=== PATIENT | male | born 1950 | race Two or more races ===

== ENCOUNTER 2025-01-25 14:47 | Inpatient (IN) | payer OTHER ==
[~2025-01-25] VITALS: Ht 172.7 cm; Wt 110.8 kg
[~2025-01-25 14:47] MED LIST: ATOR80TA PO; CARV6.2551 PO; CLOP75TA70 PO; LOSA-535 PO; TRAZ-227 PO
--- NOTE | 2025-01-25 15:08 | ED.PDOC ---
GI ASSESSMENT HPI Comments 74 year old male DENISE presents to the ED with chief complaint of abdominal pain and hematemesis. Patient reports that he had started to experience epigastric abdominal pain with associated dark red hematemesis since an hour ago. Patient relays that he is not sure what color his stools are as he is changed by [facility] staff at [facility] where he stays. Patient states he has history of stomach ulcers and believes they are causing the pain and hematemesis. Patient notes he is currently on Plavix. Patient denies any melena, hematochezia, dizziness, fever, chills, diarrhea, or chest pain. Chief Complaint: GI Bleed Time Seen by MD: 15:04 Reviewed Notes: Nurses Notes, Roller Staker Notes, Medications, Allergies Allergies: Coded Allergies: NO KNOWN ALLERGIES (Unverified , 01/25/25) Information Source: Patient, Emergency Med Personnel Mode of Arrival: EMS Timing: Hours Duration: Since onset Prehospital treatment: None Quality: Sharp Vomitus: Coffee Grounds Stool: Normal Severity: Moderate Recent: None Recent Hx of: Ulcer Disease Pain Location: Epigastric Modifying Factors: Nothing Associated sign and symptoms: Hematemesis, Abdominal Pain Past Medical History PAST MEDICAL HISTORY: CVA, MD Past Medical History (Other): Stomach ulcers Surgical History: Denies all surgeries Family History Family History: Reviewed,noncontributory to illness Social History Smoker: Non-Smoker Alcohol: Denies ETOH Use Drugs: Denies Drug Use Lives In: Assisted Care, Shelter Constitutional: denies: chills, diaphoresis, fatigue, fever, malaise, sweats, weakness, others EENTM: denies: blurred vision, double vision, ear bleeding, ear discharge, ear drainage, ear pain, ear ringing, eye pain, eye redness, hearing loss, mouth pain, mouth swelling, nasal discharge, nose bleeding, nose congestion, nose pain, photophobia, tearing, throat pain, throat swelling, voice changes, others Respiratory: denies: cough, hemoptysis, orthopnea, SOB at rest, shortness of breath, SOB with excertion, stridor, wheezing, others Cardiovascular: denies: chest pain, dizzy spells, diaphoresis, Dyspnea on exertion, edema, irregular heart beat, left arm pain, lightheadedness, palpitations, PND, syncope, others Gastrointestinal: reports: abdominal pain, hematemesis; denies: abdomen di stended, blood streaked bowels, constipated, diarrhea, dysphagia, difficulty swallowing, melena, nausea, poor appetite, poor fluid intake, rectal bleeding, rectal pain, vomiting, others Genitourinary: denies: burning, dysuria, flank pain, frequency, hematuria, incontinence, penile discharge, penile sore, pain, testicle pain, testicle swelling, urgency, others Neurological: denies: dizziness, fainting, headache, left sided numbness, left sided weakness, numbness, paresthesia, pre-existing deficit, right sided numbness, right sided weakness, seizure, speech problems, tingling, tremors, weakness, others Musculoskeletal: denies: back pain, gout, joint pain, joint swelling, muscle pain, muscle stiffness, neck pain, others Integumetry: denies: bruises, change in color, change in hair/nails, dryness, laceration, lesions, lumps, rash, wounds, others Allergic/Immunocompromised: denies: Difficulty Healing, Frequent Infections, Hives, Itching, others Hematologic/Lymphatic: denies: anemia, blood clots, easy bleeding, easy bruising, swollen glands, others Endocrine: denies: excessive hunger, excessive sweating, excessive thirst, excessive urination, flushing, intolerance to cold, intolerance to heat, unexplained weight gain, unexplained weight loss, others Psychiatric: denies: anxiety, bipolar disorder, depression, hopeless, panic disorder, schizophrenia, sleepless, suicidal, others All Other Systems: Reviewed and Negative Physical Exam General Appearance: Moderate Distress, Normal HEENT: Normal ENT Inspection, PERRL/EOMI Neck: Full Range of Motion, Non-Tender, Normal, Normal Inspection Respiratory: Chest Non-Tender, Lungs Clear, No Accessory Muscle Use, No Respiratory Distress, Normal Breath Sounds Cardiovascular: No Edema, No JVD, No Murmur, No Gallop, Normal Peripheral Pulses, Regular Rate/Rhythm Breast Exam: Deferred Gastrointestinal: No Organomegaly, Non Tender, No Pulsatile Mass, Normal Bowel Sounds, Soft Genitalia: Deferred Pelvic: Deferred Rectal: Deferred Extremities: Decreased range of motion (Right upper lower extremity), No calf tenderness, No pedal edema Musculoskeletal : Apperance: Normal Neurologic: Alert, Motor Weakness (Right upper lower extremity) Cerebellar Function: NOT DONE Reflexes: NOT DONE Skin: Dry, Normal Color, Warm Lymphatic: No Adenopathy Was a procedure done? Was a procedure done?: No GI differential Dx Differential Diagnosis: Constipation, Diverticular disease, Esophagitis, Gastritis/PUD, Gastroenteritis X-Ray, Labs, Meds, VS Vital Signs Date Time Temp Pulse Resp B/P (MAP) Pulse Ox O2 Delivery O2 Flow Rate FiO2 01/25/25 14:56 97.3 88 18 168/99 (122) 98 Lab Test 01/25/25 15:17 Range/Units White Blood Count Pending Red Blood Count Pending Hemoglobin Pending Hematocrit Pending Mean Corpuscular Volume Pending Mean Corpuscular Hemoglobin Pending Mean Corpuscular Hemoglobin Concent Pending Red Cell Distribution Width Pending Platelet Count Pending Mean Platelet Volume Pending Neutrophils (%) (Auto) Pending Lymphocytes (%) (Auto) Pending Monocytes (%) (Auto) Pending Basophils (%) (Auto) Pending Neutrophils # (Auto) Pending Lymphocytes # (Auto) Pending Monocytes # (Auto) Pending Sodium Level Pending Potassium Level Pending Chloride Level Pending Carbon Dioxide Level Pending Anion Gap Pending Blood Urea Nitrogen Pending Creatinine Pending Glomerular Filtration Rate Calc Pending BUN/Creatinine Ratio Pending Serum Glucose Pending Calcium Level Pending Troponin I High Sensitivity Pending Patient alert. Complaining of vomiting dark color material. Vitals stable. Saturation pristine on room air. He does take Plavix. History of stroke. He is mentating. Was placed on Protonix. GI consultation. Reviewed his previous visit. Explained to the patient. Continue monitoring. EKG reviewed does not show any acute changes. Time of 1ST Reevaluation: 16:04 Reevaluation 1ST: Unchanged Patient Education/Counseling: Diagnosis, Treatment Family Education/Counseling: No Family Present Additional Information Previous visit documents reviewed: None The following tests were ordered, and results were reviewed by me: Additional Information was gathered from interviewing the following independent historians: EMS I reviewed and agreed with the following test results read by other providers: I discussed treatment and results with medical personnel. Departure 1 Departure Time of Disposition: 15:29 Impression: Primary Impression: GI bleed Qualified Codes: K92.2 - Gastrointestinal hemorrhage, unspecified Disposition: 09 ADMITTED INPATIENT Admit to: Med Surg Condition: Guarded Critical Care Note Critical Care Time?: Yes (90 min-critical care time only) Critical care comment: GI bleed monitor Stability Stability form required: No Heart Score Heart Score: Heart Score Response (Comments) Value History Slightly Suspicious 0 EKG Normal 0 Age >65 2 Risk Factors >3 or Hx ASHD 2 Troponin Normal limit 0 Total 4 I personally scribed for CECILIA ELLINGTON MD ([email or web address]) on 01/25/25 at 15:08. Electronically submitted by Johnny Thompson ([email or web address]). CECILIA ELLINGTON MD Jan 25, 2025 15:08
[2025-01-25 15:26] LABS: Basophils # (auto) 0.1 10 ^3/uL (0-0.2); Basophils % (auto) 0.5 % (0.0-2.0); Eosinophils # (auto) 0.2 10 ^3/uL (0-0.8); Eosinophils % (auto) 1.5 % (0.0-7.0); Hematocrit 37.8 % (41.0-53.0); Hemoglobin 12.8 g/dL (13.5-17.5); Lymphocytes # (auto) 1.2 10 ^3/uL (0.4-5.4); Lymphocytes % (auto) 8.8 % (10.0-50.0); Mean Corpuscular Hemoglobin 28.8 pg (28.0-32.0); Mean Corpuscular Hgb Conc. 33.8 g/dL (32.0-36.0); Mean Corpuscular Volume 85.3 fL (80.0-100.0); Monocytes % (auto) 6.8 % (0.0-12.0); Neutrophils # (auto) 11.7 10 ^3/uL (1.6-8.6); Neutrophils % (auto) 82.4 % (37.0-80.0); Nucleated Red Blood Cells % 0.1 %; Platelet Count (auto) 270 10^3/uL (140-450); Red Blood Cells 4.43 10^6/uL (4.5-5.90); Red Cell Distribution Width 12.9 % (11.8-14.3); White Blood Cell 14.2 10^3/uL (4.4-10.8)
[2025-01-25 15:40] LABS: Chloride 104 mmol/L (98-107); Potassium 4.2 mmol/L (3.5-5.1); Sodium 138 mmol/L (136-145)
[2025-01-25 15:41] LABS: Anion Gap 8 (5-15); Calcium 8.8 mg/dL (8.7-10.4); Carbon Dioxide 26 mmol/L (20-31)
[2025-01-25 15:46] LABS: BUN/Creatinine Ratio 24.8 (10.0-20.0)
[2025-01-25 15:47] LABS: Blood Urea Nitrogen 25 mg/dL (9-23); Glucose 149 mg/dL (74-106)
[2025-01-25] MEDS: PANTOPRAZOLE 40 MG/10 ML VIAL INJ IV ONE (15:57)
[2025-01-25] MEDS: ONDANSETRON HCL 4 MG/2 ML VIAL IV ONE ×2 (15:57→21:18)
[2025-01-25 16:01] VITALS: PULSE 89; RESP 20; O2SAT 95
--- NOTE | 2025-01-25 17:12 | DVH ---
CHEST RADIOGRAPH Indication: sob Technique: Single frontal view of the chest was obtained Comparison: None FINDINGS: Lines and Tubes: None Lungs: No focal consolidation. Moderate elevation of the right hemidiaphragm. Right paratracheal full ness. Pleura: No effusion. No pneumothorax. Cardiomediastinal contours: Unremarkable Bones: No acute osseous abnormality. IMPRESSION: No acute cardiopulmonary disease. Moderate elevation of the right hemidiaphragm. Right paratracheal fullness which may be from tortuous vasculature with mediastinal lymphadenopathy/m ass not excluded. CT May be considered for further evaluation.
[2025-01-25 19:28] VITALS: PULSE 92; RESP 14; O2SAT 96
[2025-01-25] MEDS: SODIUM CHLORIDE 0.9% 500 ML IV ONE (20:55)
[2025-01-25] MEDS: PANTOPRAZOLE 40mg/50ML NS AE 50 ML IV ONE (21:03)
[2025-01-25] MEDS ORDERED: MORPHINE SULFATE INJ 2 MG/ml SYRG IV PRN (21:15)
[2025-01-25] MEDS ORDERED: ONDANSETRON HCL 4 MG/2 ML VIAL IV PRN (21:15)
[2025-01-25] MEDS ORDERED: NITROGLYCERIN 0.4 MG SL TAB SL PRN (21:15)
[2025-01-25] MEDS: ONDANSETRON HCL 4 MG/2 ML VIAL ONE (21:18)
[2025-01-25] MEDS: OCTREOTIDE ACETATE 500 MCG in SODIUM CHL 0.9% 99 ML IV SCH (21:19)
[2025-01-25] MEDS: PANTOPRAZOLE 40mg/50ML NS AE 50 ML IV SCH (21:27)
--- NOTE | 2025-01-25 21:35 | DVHHP2 ---
History of Present Illness Reason for Visit: GI bleed History of Present Illness 74-year-old male presents for evaluation of GI bleed. Patient is a resident at [facility] in [place]. He reports having two episodes of bloody emesis. He describes the output as dark blood with clots. Denies melena. Reports having dizziness in mild shortness for breath. Denies chest pain or palpitations. The patient is not on any blood thinners. No other acute complaints reported. Past Medical History CVA, mi, brain tumor Past Surgical History Denies Family History Noncontributory Smoke: No ALCOHOL: none Drugs: None Lives: [facility] Review of Systems Review of Systems Review of systems are currently negative addressed HPI. Allergies: Coded Allergies: NO KNOWN ALLERGIES (Unverified , 01/25/25) Medications Current Medications Medications Dose Ordered Sig/Loco Route Start Time Stop Time Status Last Admin Dose Admin Octreotide Acetate 500 mcg/ Sodium Chloride 100 ml @ 10 mls/hr Q10H IV 01/25/25 20:15 01/25/25 21:19 10 MLS/HR Pantoprazole Sodium 50 ml @ 10 mls/hr Q5H IV 01/25/25 21:00 01/25/25 21:27 10 MLS/HR Sodium Chloride 1,000 ml @ 75 mls/hr [id number] IV 01/25/25 21:15 UNV Ondansetron HCl 4 mg Q4HP PRN IV 01/25/25 21:15 UNV Nitroglycerin 0.4 mg Q5MINP PRN SL 01/25/25 21:15 UNV Morphine Sulfate 2 mg Q30M PRN IV 01/25/25 21:15 UNV Exam Vital Signs Vital Signs Date Time Temp Pulse Resp B/P (MAP) Pulse Ox O2 Delivery O2 Flow Rate FiO2 01/25/25 19:41 89 01/25/25 19:28 14 96 Room Air* 0 21 01/25/25 19:27 97.9 117/98 (104) 97.9 Exam Gen: 74-year-old male in mild distress Skin: Warm, dry, normal color and texture, no rash. HEENT: Normocephalic atraumatic, mucous membranes moist and pink. Neck: Cervical and supraclavicular nodes normal without enlargement, trachea is midline, thyroid gland is normal without masses. Pulmonary: Clear to auscultation and percussion bilaterally. Cardiac: Regular rate and rhythm. No murmur Abdomen: Soft, nontender, nondistended, bowel sounds present all 4 quadrants, no guarding, no rigidity, no organomegaly. Extremities: No cyanosis, clubbing, no edema Neuro: Cranial nerves II through XII grossly intact, normal affect and speech, no focal motor deficits. Labs/Xrays ORDERING PHYSICIAN: CECILIA ELLINGTON MD PROCEDURE(s): CXRP - CHEST PORTABLE REASON: sob ORDER NUMBER(s): [id number], ACCESSION NUMBER(s): [id number] CHEST RADIOGRAPH Indication: sob Technique: Single frontal view of the chest was obtained Comparison: None FINDINGS: Lines and Tubes: None Lungs: No focal consolidation. Moderate elevation of the right hemidiaphragm. Right paratracheal fullness. Pleura: No effusion. No pneumothorax. Cardiomediastinal contours: Unremarkable Bones: No acute osseous abnormality. IMPRESSION: No acute cardiopulmonary disease. Moderate elevation of the right hemidiaphragm. Right paratracheal fullness which may be from tortuous vasculature with mediastinal lymphadenopathy/mass not excluded. CT May be considered for further evaluation. Labs Test 01/25/25 20:52 01/25/25 20:34 01/25/25 19:30 01/25/25 15:17 Range/Units Lactic Acid Level 2.0 0.4-2.0 mmol/L Troponin I High Sensitivity 69 *H </=54 ng/L Eosinophils (%) (Auto) 1.5 0.0-7.0 % Eosinophils # (Auto) 0.2 0-0.8 10 ^3/uL Basophils # (Auto) 0.1 0-0.2 10 ^3/uL Nucleated Red Blood Cells 0.1 % Sodium Level 138 136-145 mmol/L Potassium Level 4.2 3.5-5.1 mmol/L Chloride Level 104 98-107 mmol/L Carbon Dioxide Level 26 20-31 mmol/L Anion Gap 8 5-15 Blood Urea Nitrogen 25 H 9-23 mg/dL Creatinine 1.01 0.700-1.30 mg/dL Glomerular Filtration Rate Calc 79 >90 mL/min BUN/Creatinine Ratio 24.8 H 10.0-20.0 Serum Glucose 149 H 74-106 mg/dL Calcium Level 8.8 8.7-10.4 mg/dL Assessment/Plan Assessment/Plan Assessment GI bleed Blood loss anemia Plan Admit the patient to telemetry to the hospitalist GI consultation NPO Protonix drip/octreotide drip Maintenance IV fluids Continue treatment per orders. Plan discussed with: Patient My Orders Orders - LUZMA VILLARREAL Procedure Category Date Status Time Pantoprazole PHA 01/25/25 In Process 40mg/50ml Ns Ae 21:00 Stool Occult Blood LAB 01/25/25 Logged 21:15 Admit ADMIT 01/25/25 Transmitted 21:15 Sodium Chloride 0.9% PHA 01/25/25 Logged 21:15 Ondansetron Hcl PHA 01/25/25 Logged (Zofran) 21:15 Complete Blood Count LAB 01/26/25 Verified 04:00 Comprehensive LAB 01/26/25 Verified Metabolic Panel 04:00 Npo (Nothing By DIET 01/26/25 Transmitted Mouth) Diet Breakfast Condition: Fair KIRSTEN 01/25/25 In Process 21:15 Bedrest With Bathroom KIRSTEN 01/25/25 In Process Privileg 21:15 Nitroglycerin PHA 01/25/25 Logged Sublingual (Ntrostat 21:15 Morphine Sulfate PHA 01/25/25 Logged Injection 21:15 Stat Ekg For Chest KIRSTEN 01/25/25 In Process Pain 21:15 Notify Md Of Changes KIRSTEN 01/25/25 In Process From Base 21:15 Metal Fabricator Welder For KIRSTEN 01/25/25 In Process 24 Hours 21:15 Emergency Dysrhythmia KIRSTEN 01/25/25 In Process Protocol 21:15 Rhythm Strips Once KIRSTEN 01/25/25 In Process Every Shift 21:15 Oxygen By Nasal RT 01/25/25 Transmitted Cannula 21:15 Date of Service: Jan 25, 2025 Billing Provider: LUZMA VILLARREAL Common Visit Codes: 63365-[id number] INP/OBS CARE (HIGH) LUZMA VILLARREAL Jan 25, 2025 21:35
[2025-01-25 21:52] LABS: Basophils # (auto) 0.1 10 ^3/uL (0-0.2); Basophils % (auto) 0.5 % (0.0-2.0); Eosinophils # (auto) 0.1 10 ^3/uL (0-0.8); Eosinophils % (auto) 0.8 % (0.0-7.0); Hematocrit 30.8 % (41.0-53.0); Hemoglobin 10.4 g/dL (13.5-17.5); Lymphocytes # (auto) 1.6 10 ^3/uL (0.4-5.4); Lymphocytes % (auto) 10.7 % (10.0-50.0); Mean Corpuscular Hemoglobin 29.1 pg (28.0-32.0); Mean Corpuscular Hgb Conc. 33.9 g/dL (32.0-36.0); Mean Corpuscular Volume 85.8 fL (80.0-100.0); Monocytes % (auto) 7.2 % (0.0-12.0); Neutrophils # (auto) 11.7 10 ^3/uL (1.6-8.6); Neutrophils % (auto) 80.8 % (37.0-80.0); Nucleated Red Blood Cells % 0.2 %; Platelet Count (auto) 320 10^3/uL (140-450); Red Blood Cells 3.59 10^6/uL (4.5-5.90); Red Cell Distribution Width 12.9 % (11.8-14.3); White Blood Cell 14.4 10^3/uL (4.4-10.8)
[2025-01-25 22:35] LABS: INR 1.22 (0.9-1.15); Partial Thromboplastin Time 29.4 SEC (24.5-34.5); Prothrombin Time 12.7 sec (9.3-11.8)
[2025-01-25] MEDS: SODIUM CHLORIDE 0.9% 1,000 ML IV SCH (22:46)
--- NOTE | 2025-01-25 22:48 | DVH ---
CHEST RADIOGRAPH Indication: NG TUBE Technique: Single frontal view of the chest was obtained Comparison: XY CHEST PORTABLE on DOS: 01/25/25 FINDINGS: Lines and Tubes: Enteric tube below the left diaphragm in the stomach Lungs: No focal consolidation. Pleura: No effusion. No pneumothorax. Cardiomediastinal contours: Unremarkable Bones: No acute osseous abnormality. IMPRESSION: 1. Enteric tube below the left diaphragm in the stomach
[2025-01-25 23:20] VITALS: BP 99/66; PULSE 92; RESP 22; TEMP 98.2
[2025-01-25 23:38] VITALS: BP 112/70; PULSE 93; RESP 20; TEMP 98
[2025-01-26] VITALS (9 sets, daily range): BP systolic 119–147; BP diastolic 62–93; PULSE 80–93; RESP 16–19; TEMP 98–98.6; O2SAT 97–100
--- NOTE | 2025-01-26 03:56 | ECG ---
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
[2025-01-26 06:08] LABS: Basophils # (auto) 0 10 ^3/uL (0-0.2); Basophils % (auto) 0.3 % (0.0-2.0); Eosinophils # (auto) 0.1 10 ^3/uL (0-0.8); Eosinophils % (auto) 0.5 % (0.0-7.0); Hematocrit 30.9 % (41.0-53.0); Lymphocytes # (auto) 1.3 10 ^3/uL (0.4-5.4); Lymphocytes % (auto) 9.8 % (10.0-50.0); Mean Corpuscular Hemoglobin 30.1 pg (28.0-32.0); Mean Corpuscular Hgb Conc. 35.7 g/dL (32.0-36.0); Mean Corpuscular Volume 84.5 fL (80.0-100.0); Monocytes # (auto) 1.1 10 ^3/uL (0-1.3); Monocytes % (auto) 8.4 % (0.0-12.0); Neutrophils # (auto) 10.7 10 ^3/uL (1.6-8.6); Nucleated Red Blood Cells % 0.1 %; Platelet Count (auto) 247 10^3/uL (140-450); Red Blood Cells 3.66 10^6/uL (4.5-5.90); Red Cell Distribution Width 12.9 % (11.8-14.3); White Blood Cell 13.2 10^3/uL (4.4-10.8)
[2025-01-26 06:23] LABS: Alanine Aminotransferase 13 U/L (7-40); Alkaline Phosphatase 59 U/L (46-116); Carbon Dioxide 21 mmol/L (20-31); Chloride 106 mmol/L (98-107)
[2025-01-26 06:24] LABS: Anion Gap 11 (5-15); Aspartate Aminotransferase 16 U/L (13-40); BUN/Creatinine Ratio 39.1 (10.0-20.0); Potassium 4.8 mmol/L (3.5-5.1); Sodium 138 mmol/L (136-145)
[2025-01-26 06:25] LABS: Bilirubin, Total 0.7 mg/dL (0.2-1.0)
[2025-01-26 06:29] LABS: Albumin 3.2 g/dL (3.2-4.8); Blood Urea Nitrogen 34 mg/dL (9-23); Calcium 8.5 mg/dL (8.7-10.4); Glucose 133 mg/dL (74-106); Total Protein 5.1 g/dL (5.7-8.2)
--- NOTE | 2025-01-26 10:26 | DVHPN2 ---
Progress Note Date Seen: Jan 26, 2025 Medical Necessity Reason Pt with a Central, PICC or Fol: No Subjective Patient reports: No new complaints Review of Systems: HEENT:Normal, CVS:Normal, RESPIRATORY:Normal, GI:Normal, :Normal, MSK:Normal, NEURO:Normal Objective vital signs Vital Sign Date Time Temp Pulse Resp B/P (MAP) Pulse Ox O2 Delivery O2 Flow Rate FiO2 01/26/25 05:00 98.6 86 18 119/62 (81) 98 98.6 01/25/25 19:28 Room Air* 0 21 Total Intake and Output 01/25/25 01/25/25 01/26/25 15:00 23:00 07:00 Intake Total 525 ml 1260 ml Output Total 300 ml Balance 525 ml 960 ml medications Current Medications Medications Dose Ordered Sig/Loco Route Start Time Stop Time Status Last Admin Dose Admin Octreotide Acetate 500 mcg/ Sodium Chloride 100 ml @ 10 mls/hr Q10H IV 01/25/25 20:15 01/25/25 21:19 10 MLS/HR Pantoprazole Sodium 50 ml @ 10 mls/hr Q5H IV 01/25/25 21:00 01/26/25 07:05 10 MLS/HR Sodium Chloride 1,000 ml @ 75 mls/hr [id number] IV 01/25/25 21:15 01/25/25 22:46 75 MLS/HR Ondansetron HCl 4 mg Q4HP PRN IV 01/25/25 21:15 Nitroglycerin 0.4 mg Q5MINP PRN SL 01/25/25 21:15 Morphine Sulfate 2 mg Q30M PRN IV 01/25/25 21:15 Examination: GENERAL:Normal, HEENT:Normal, NECK:Normal, LUNGS:Normal, CVS:Normal, ABDOMEN:Normal, ABDOMEN:Abnormal (ng tube), MSK:Normal, SKIN:Normal, NEURO:Normal, NEURO:Abnormal (right hemiplegia), :Normal laboratory and microbiology Laboratory Tests 01/26/25 04:57 Test 01/26/25 04:57 Range/Units Serum Glucose 133 H 74-106 mg/dL Problem List/Assessment/Plan Problem List/Assessment/Plan #1 gi bleed: ct abd, gi eval, iv protonic #2 h/o cva with right hemiplegia #3 cad #4 obesity #5 htn #6 ?sirs due to gi bleed #7 nstemi ?type 2 advance care planning- full code-time spent 19mins Plan discussed with: Patient, Daughter Date of Service: Jan 26, 2025 Billing Provider: LUZMA EAST MD Common Visit Codes: [id number] INP/OBS CARE(HIGH) Secondary Visit Codes: 35672-MYIJLIAN CARE PLAN 30 MINUTES CC Plasma Assessment Blood Product Administration S: [id number] LUZMA EAST MD Jan 26, 2025 10:26
--- NOTE | 2025-01-26 11:43 | DVHINCON2 ---
GI Consult Consult Note GI consult note Date of Consultation: 01/26/2025 Chief Complaint: GI bleed Referring Physician: Dr. Chadwick H&P: 74-year-old male presented to ER for GI bleed, from [facility]. Patient's daughter at bedside also providing history. Patient has DNR on chart Patient started with bloody emesis one day ago, with two episodes, which was dark blood with clots. Patient has about 300 cc via NG tube. No melena or red blood in stool, Last BM two days ago Patient complains of abdominal pain for the last seven days. History of GERD. No EGD in past History of CVA, May 2024. Treated with Plavix. Last dose yesterday Patient admits to take Tylenol and NSAIDs as needed for pain Past Medical History: CVA, mi, brain tumor Past Surgical History: Denies Social History: NO smoking, drinking ETOH and use of illegal drugs. Family History: Noncontributory Review of Systems: Constitutional: no fever, chill, weight loss HEENT: no eye pain, no hearing loss, no oral lesion, no scleral icterus Heart: no chest pain, no chest pressure Lung: no cough, no dyspnea with exertion Abdomen: see HPI Physical exam: General: NAD, AAOX3 Chest: lung garcia clear to auscultation Heart: RRR, no murmur Abdomen: non-distended, no tenderness to palpation, +BS Labs: Labs Test 01/26/25 04:57 01/25/25 20:52 01/25/25 19:30 Range/Units White Blood Count 13.2 H 4.4-10.8 10^3/uL Red Blood Count 3.66 L 4.5-5.90 10^6/uL Hemoglobin 11.0 L 13.5-17.5 g/dL Hematocrit 30.9 L 41.0-53.0 % Mean Corpuscular Volume 84.5 80.0-100.0 fL Mean Corpuscular Hemoglobin 30.1 28.0-32.0 pg Mean Corpuscular Hemoglobin Concent 35.7 32.0-36.0 g/dL Red Cell Distribution Width 12.9 11.8-14.3 % Platelet Count 247 140-450 10^3/uL Mean Platelet Volume 7.9 6.9-10.8 fL Neutrophils (%) (Auto) 81.0 H 37.0-80.0 % Lymphocytes (%) (Auto) 9.8 L 10.0-50.0 % Monocytes (%) (Auto) 8.4 0.0-12.0 % Eosinophils (%) (Auto) 0.5 0.0-7.0 % Basophils (%) (Auto) 0.3 0.0-2.0 % Neutrophils # (Auto) 10.7 H 1.6-8.6 10 ^3/uL Lymphocytes # (Auto) 1.3 0.4-5.4 10 ^3/uL Monocytes # (Auto) 1.1 0-1.3 10 ^3/uL Eosinophils # (Auto) 0.1 0-0.8 10 ^3/uL Basophils # (Auto) 0 0-0.2 10 ^3/uL Nucleated Red Blood Cells 0.1 % Sodium Level 138 136-145 mmol/L Potassium Level 4.8 3.5-5.1 mmol/L Chloride Level 106 98-107 mmol/L Carbon Dioxide Level 21 20-31 mmol/L Anion Gap 11 5-15 Blood Urea Nitrogen 34 H 9-23 mg/dL Creatinine 0.87 0.700-1.30 mg/dL Glomerular Filtration Rate Calc 91 >90 mL/min BUN/Creatinine Ratio 39.1 H 10.0-20.0 Serum Glucose 133 H 74-106 mg/dL Calcium Level 8.5 L 8.7-10.4 mg/dL Total Bilirubin 0.7 0.2-1.0 mg/dL Aspartate Amino Transferase (AST) 16 13-40 U/L Alanine Aminotransferase (ALT) 13 7-40 U/L Alkaline Phosphatase 59 46-116 U/L Total Protein 5.1 L 5.7-8.2 g/dL Albumin 3.2 3.2-4.8 g/dL Prothrombin Time 12.7 H 9.3-11.8 sec Prothrombin Time INR 1.22 H 0.9-1.15 Activated Partial Thromboplast Time 29.4 24.5-34.5 SEC Lactic Acid Level 2.0 0.4-2.0 mmol/L Troponin I High Sensitivity 69 *H </=54 ng/L Imaging: CT abdomen and pelvis Results pending Assessment: GI bleed History CVA with right hemiplegia on Plavix History of GERD Elevated troponins Plan: Discussed with Dr. Gutierrez Monitor labs, transfuse if hemoglobin less than seven Continue Protonix Continue octreotide, which can be stopped if H and H is stable and no active bleeding Echocardiogram pending Discussed possible EGD with patient and daughter, both being agreeable to the pr ocedure Possible plan for EGD on Friday, pending echocardiogram Hold Plavix and blood thinners Discussed plan with patient, daughter at bedside. RN and Dr. Flanagan Thank you for allowing GI team to participate in the care of this patient Date of Service: Jan 26, 2025 Billing Provider: LEEANN HERNANDEZ Common Visit Codes: CONSULT ONLY Consultation Codes: [id number] CONSULT <60MIN LEEANN HERNANDEZ Jan 26, 2025 11:43
--- NOTE | 2025-01-26 12:24 | DVH ---
Exam: CT CT AB PEL WO CON-NO ORAL OR IV History: gi bleed Comparison Study: None Technique: Multidetector spiral CT of the abdomen was performed from lung bases to pubic symphysis. I maging was performed without IV contrast. Axial, coronal and sagittal multiplanar reformats were obta ined from the axial data set by the technologist. Radiation Dose : 1. Abdomen/Pelvis: CTDIvol 23.9 mGy, DLP 1533.5 mGy*cm. Findings: Evaluation of solid organs is limited due to lack of intravenous contrast use. Lung Bases: Right basilar subsegmental atelectasis. Cardiomegaly. Calcifications in the left ventricl e are suspicious for left ventricular aneurysm. Liver: The liver is normal in size. No focal lesions. Gallbladder and Biliary Tree: Unremarkable Spleen: Unremarkable Pancreas: The pancreas is grossly normal in appearance. Adrenal Glands: Unremarkable Kidneys: Kidneys are grossly normal without calculi or hydronephrosis. Right lower pole renal cysts a re present. Bladder: Grossly unremarkable for degree of distention. Bowel: Small to moderate hiatal hernia. Diverticulosis. Normal appendix is visualized in the right lo wer quadrant without findings of appendicitis. Ascites: Absent Lymphadenopathy: No mesenteric, retroperitoneal or periportal lymphadenopathy. Abdominal Wall and Mesentery: Small bilateral fat containing inguinal hernias. Vasculature: The visualized abdominal aorta is normal in size and caliber. Evaluation of abdominal a nd pelvic vessels is limited due to lack of intravenous contrast. Pelvic Organs: Unremarkable Musculoskeletal: No aggressive focal bony lesions, acute fractures or dislocation. IMPRESSION: Colonic diverticulosis. Radiation optimization: All CT scans at this facility use at least one of these dose optimization walter hniques: automated exposure control mA and/or kV adjustment per patient size (includes targeted exam s where dose is matched to clinical indication) or iterative reconstruction.
[2025-01-27] VITALS (8 sets, daily range): BP systolic 114–162; BP diastolic 59–82; PULSE 72–92; RESP 16–18; TEMP 97.3–98.2; O2SAT 91–98
[2025-01-27 07:00] LABS: Chloride 106 mmol/L (98-107); Potassium 3.8 mmol/L (3.5-5.1); Sodium 140 mmol/L (136-145)
[2025-01-27 07:01] LABS: Anion Gap 8 (5-15); Carbon Dioxide 26 mmol/L (20-31)
[2025-01-27 07:03] LABS: Calcium 8.5 mg/dL (8.7-10.4)
[2025-01-27 07:06] LABS: BUN/Creatinine Ratio 27.4 (10.0-20.0); Glucose 142 mg/dL (74-106)
[2025-01-27 07:09] LABS: Blood Urea Nitrogen 26 mg/dL (9-23)
[2025-01-27 07:16] LABS: Basophils # (auto) 0.1 10 ^3/uL (0-0.2); Basophils % (auto) 0.5 % (0.0-2.0); Eosinophils # (auto) 0.2 10 ^3/uL (0-0.8); Hematocrit 27.9 % (41.0-53.0); Hemoglobin 9.7 g/dL (13.5-17.5); Lymphocytes # (auto) 1.1 10 ^3/uL (0.4-5.4); Lymphocytes % (auto) 5.8 % (10.0-50.0); Mean Corpuscular Hemoglobin 29.6 pg (28.0-32.0); Mean Corpuscular Hgb Conc. 34.8 g/dL (32.0-36.0); Mean Corpuscular Volume 85.1 fL (80.0-100.0); Monocytes # (auto) 1.2 10 ^3/uL (0-1.3); Monocytes % (auto) 6.7 % (0.0-12.0); Neutrophils # (auto) 15.9 10 ^3/uL (1.6-8.6); Platelet Count (auto) 262 10^3/uL (140-450); Red Blood Cells 3.28 10^6/uL (4.5-5.90); White Blood Cell 18.5 10^3/uL (4.4-10.8)
[2025-01-27] MEDS ORDERED: CLINIMIX PER PHARMACY 0 ML IV SCH (10:00)
--- NOTE | 2025-01-27 10:02 | DVHSR ---
APPROVED REPORT EXAM: LIMITED Two-dimensional and M-mode echocardiogram with Doppler and color Doppler. Blood Pressure: 119/62 mmHg INDICATION CAD RISK FACTORS Height: 5' 8", Weight: 216 DIMENSIONS LVDd5.4 (3.8-5.7cm)LA (2D)3.4 (1.9-4.0cm)Aortic Root3.8 (2.0-3.7cm) LVDs4.0 (2.5-4.0cm)LA (MM) (1.9-4.0cm)Aortic Cusp Exc1.7 (1.5-2.0cm) EF (%) 50.0 (55-70%)Rt. Atrium3.4 (1.9-4.0cm)Asc. Aorta4.0 cm IVSd1.3 (0.7-1.1cm)RV (D) (1.8-2.4cm) PWd1.3 (0.7-1.1cm) Mitral Valve MitralMitral Stenosis E wave0.70m/sMV Mean GR.mmHg A wave1.20m/sMV Peak GR.mmHg E/A ratio0.62D MVAcm2 Aortic Valve Aortic ValveAortic Stenosis V11.40m/Radha Mean GR.5mmHg V21.50m/Radha Peak GR.9mmHg LVOT Diameter2.4 (1.8-2.4cm)Doppler AVA4.22cm2 AI P 1/2 Pgms574.94ms Tricuspid Valve TR Velocity2.20m/s [id number] Other Information Quality : Technically LimitedRhythm : Technically limited study due to body habitus, patient sitting up due to nausea. Conclusion Technically difficult study. Difficult acoustic windows. Sinus rhythm. Left ventricular enlargement. Left atrial enlargement. Concentric LVH. Mild aortic sclerosis. The mitral tricuspid and pulmonic valves are structurally normal. Left ventricular function is diminished. EF is approximately 40%. There is anterior apical hypokine sis to akinesis. Mild thinning noted. Normal RV function. Mild aortic insufficiency. Mild tricuspid regurgitation. No pericardial effusion masses or vegetations.
--- NOTE | 2025-01-27 10:08 | DVHPN2 ---
Progress Note Date Seen: Jan 27, 2025 Medical Necessity Reason Pt with a Central, PICC or Fol: No Subjective Patient reports: No new complaints Review of Systems: HEENT:Normal, CVS:Normal, RESPIRATORY:Normal, GI:Normal, :Normal, MSK:Normal, NEURO:Normal Objective vital signs Vital Sign Date Time Temp Pulse Resp B/P (MAP) Pulse Ox O2 Delivery O2 Flow Rate FiO2 01/27/25 09:48 97.7 89 16 129/65 (86) 96 97.7 01/27/25 08:00 Nasal Cannula* 2 28 Total Intake and Output 01/26/25 01/26/25 01/27/25 15:00 23:00 07:00 Intake Total 250 ml Output Total 405 ml Balance -155 ml medications Current Medications Medications Dose Ordered Sig/Loco Route Start Time Stop Time Status Last Admin Dose Admin Pantoprazole Sodium 50 ml @ 10 mls/hr Q5H IV 01/25/25 21:00 01/27/25 08:34 10 MLS/HR Sodium Chloride 1,000 ml @ 75 mls/hr [id number] IV 01/25/25 21:15 01/27/25 01:46 75 MLS/HR Ondansetron HCl 4 mg Q4HP PRN IV 01/25/25 21:15 Nitroglycerin 0.4 mg Q5MINP PRN SL 01/25/25 21:15 Morphine Sulfate 2 mg Q30M PRN IV 01/25/25 21:15 Examination: GENERAL:Normal, HEENT:Normal, NECK:Normal, LUNGS:Normal, CVS:Normal, ABDOMEN:Normal, MSK:Normal, SKIN:Normal, NEURO:Normal, :Normal laboratory and microbiology Laboratory Tests 01/27/25 05:07 Test 01/27/25 05:07 Range/Units Serum Glucose 142 H 74-106 mg/dL Problem List/Assessment/Plan Problem List/Assessment/Plan #1 gi bleed: ct abd, gi eval, iv protonix, ng tube to lis #2 h/o cva with right hemiplegia #3 cad #4 obesity #5 htn #6 ?sirs due to gi bleed #7 nstemi ?type 2 #8 ?pneumonia/ sepsis: iv antibiotics, xray chest advance care planning- full code-time spent 19mins Plan discussed with: Patient, Daughter My Orders My Orders Orders - LUZMA EAST MD Procedure Category Date Status Time Ct Ab Pel Wo Con-No CT 01/26/25 Resulted Oral Or Iv 10:20 Echo 2d Mode Cardiac US 01/26/25 Resulted DOP 10:20 Clinimix Per Pharmacy PHA 01/27/25 Verified 10:00 Ng/Orogastric Tube To KIRSTEN 01/27/25 Verified LIS 09:58 Ceftriaxone Ivpb PHA 01/28/25 Verified Rocephin 09:00 Ceftriaxone Ivpb PHA 01/27/25 Verified Rocephin 10:00 Metronidazole Ivpb PHA 01/27/25 Verified Flagyl 14:00 Basic Metabolic Panel LAB 01/28/25 Verified 06:00 Complete Blood Count LAB 01/28/25 Verified 06:00 Date of Service: Jan 27, 2025 Billing Provider: LUZMA EAST MD Common Visit Codes: [id number] INP/OBS CARE(HIGH) Secondary Visit Codes: [id number] CARE PLAN 30 MINUTES CC Plasma Assessment Blood Product Administration S: [id number] LUZMA EAST MD Jan 27, 2025 10:08
[2025-01-27] MEDS: SODIUM CHLORIDE 0.9% 1,000 ML IV SCH (10:15)
--- NOTE | 2025-01-27 11:07 | DVH ---
XY CHEST PORTABLE, HISTORY: NGT placement COMPARISON: XY CHEST XRAY 1 VIEW on DOS: 01/25/25, XY CHEST PORTABLE on DOS: 01/25/25 XY CHEST XRAY 1 VIEW on DOS: 01/25/25, XY CHEST PORTABLE on DOS: 01/25/25 TECHNICAL DATA: 1 view of the chest was obtained. FINDINGS: Lines and tubes: NG tube in the mid esophagus. Cardiomediastinal silhouette: normal Pulmonary vasculature: normal Lung expansion: normal Lung airspace: normal Lung interstitium: normal Pleura: normal Pneumothorax: no Bones: Unremarkable Other: no IMPRESSION: NG tube in the mid esophagus.
[2025-01-27] MEDS: cefTRIAXone 1GM/50ML D5W 50 ML IV ONE (11:19)
--- NOTE | 2025-01-27 12:17 | DVH ---
EXAM: XY CHEST PORTABLE Indication: NGT placement Technique: Single frontal view of the chest was obtained Comparison: XY CHEST PORTABLE on DOS: 01/27/25, XY CHEST XRAY 1 VIEW on DOS: 01/25/25, XY CHEST PORTABLE on DOS: 01/25/25 FINDINGS: Lines and Tubes: Enteric tube tip projects over the expected region stomach. Lungs: Right basilar opacity. Elevation of the right hemidiaphragm. Pleura: No effusion. No pneumothorax. Cardiomediastinal contours: Unremarkable Bones: No acute osseous abnormality. IMPRESSION: Right basilar opacity. Elevation of the right hemidiaphragm. Enteric tube tip projects over the expected region stomach.
--- NOTE | 2025-01-27 13:20 | DVHPN2 ---
Subjective No changes Changes from previous H/P or p: No Changes Objective Vitals Vital Signs Date Time Temp Pulse Resp B/P (MAP) Pulse Ox O2 Delivery O2 Flow Rate FiO2 01/27/25 09:48 97.7 89 16 129/65 (86) 96 97.7 01/27/25 08:00 Nasal Cannula* 2 28 Intake/Output Intake and Output 01/27/25 07:00 Intake Total 250 ml Output Total 405 ml Balance -155 ml Intake Oral 0 ml Other 250 ml Output Urine Total 5 ml Gastric Drainage Total 400 ml # Voids 2 General Appearance: Alert, Oriented X3, Cooperative, No acute distress, mild distress, moderate distress, severe distress, Other Lungs: Clear to auscultation, Normal air movement, Other Cardiovascular: Regular rate, Normal S1, Normal S2, No murmurs, Gallops, Rubs, Other Abdomen: Normal bowel sounds, Soft, No tenderness (Ouit-jw-ztrjdrri tenderness epigastric and upper abdomen areas), No hepatospenomegaly, No masses, Other Medications Current Medications Medications Dose Ordered Sig/Loco Route Start Time Stop Time Status Last Admin Dose Admin Pantoprazole Sodium 50 ml @ 10 mls/hr Q5H IV 01/25/25 21:00 01/27/25 08:34 10 MLS/HR Ondansetron HCl 4 mg Q4HP PRN IV 01/25/25 21:15 Nitroglycerin 0.4 mg Q5MINP PRN SL 01/25/25 21:15 Morphine Sulfate 2 mg Q30M PRN IV 01/25/25 21:15 Amino Acids 0 ml @ 0 mls/hr PER PHARMACY IV 01/27/25 10:00 UNV Ceftriaxone Sodium 50 ml @ 100 mls/hr DAILY@09 IV 01/28/25 09:00 Metronidazole 100 ml @ 100 mls/hr Q8HR IV 01/27/25 14:00 Sodium Chloride 1,000 ml @ 50 mls/hr Q20H IV 01/27/25 10:15 01/27/25 10:15 50 MLS/HR Laboratory Results Laboratory Tests 01/27/25 05:07 Chemistry Test 01/27/25 05:07 Calcium Level 8.5 mg/dL (8.7-10.4) L Assessment/Plan Assessment/Plan GI bleed History CVA with right hemiplegia on Plavix History of GERD Elevated troponins Plan; Discussed with Dr. Gutierrez Patient will be scheduled for EGD tomorrow 01/28/2025. Discussed risks, benefits and alternatives of procedure and sedation with patient and daughter at bedside. Patient understands and agrees Continue current treatment plan Clinimix Discussed plan with patient, daughter at bedside, RN and hospitalist Thank you Plan discussed with: Patient, Daughter, Other (RN and hospitalist) Date of Service: Jan 27, 2025 Billing Provider: LEEANN HERNANDEZ Common Visit Codes: [id number] INP/OBS CARE(HIGH) LEEANN HERNANDEZ Jan 27, 2025 13:20
[2025-01-27] MEDS: metroNIDAZOLE 500MG/100ML 100 ML IV SCH (14:50)
[2025-01-27 15:44] LABS: Urine Bacteria None Seen /hpf (None Seen)
[2025-01-27 16:06] LABS: Urine Blood Negative /uL (Negative); Urine Clarity Clear (Clear); Urine Color Light-Yellow (Yellow); Urine Protein, UAD Negative (Negative); Urine Squamous Epithelial Cell None Seen /hpf (<5); Urine Urobilinogen Normal (Negative); Urine WBC 2 /HPF (0-3); Urine pH 5.5 (5.0-9.0)
[2025-01-27 18:19] LABS: Magnesium 1.9 mg/dL (1.6-2.6)
[2025-01-27 18:20] LABS: Phosphorus 2.7 mg/dL (2.4-5.1)
[2025-01-27] MEDS: AMINO ACID INFUSION IN D10W 1,000 ML IV SCH (22:26)
[2025-01-27] MEDS: InsuLIN REG 1unit/0.01ml Soln (100units/ml) SC SCH (23:31)
[2025-01-27] MEDS: ACCU-CHEK COMFORT CURVE STRIP VI SCH (23:32)
[2025-01-28] VITALS (9 sets, daily range): BP systolic 119–137; BP diastolic 64–70; PULSE 60–82; RESP 15–18; TEMP 97.9–98.4; O2SAT 95–100
[2025-01-28] MEDS ORDERED: DEXTROSE (50%) 50ML SYRG IV SCH
--- NOTE | 2025-01-28 05:32 | DVH ---
EXAM: XR Chest, 1 View CLINICAL INDICATION: cad TECHNIQUE: Frontal view of the chest. COMPARISON: XY CHEST PORTABLE on DOS: 01/27/25, XY CHEST PORTABLE on DOS: 01/27/25, XY CHEST XRAY 1 VIE W on DOS: 01/25/25, XY CHEST PORTABLE on DOS: 01/25/25 FINDINGS: LUNGS AND PLEURAL SPACES: Pulmonary venous congestion. No consolidation. No pneumothorax. HEART: Unremarkable. No cardiomegaly. MEDIASTINUM: Unremarkable. Normal mediastinal contour. BONES/JOINTS: Unremarkable. No acute fracture. OTHER FINDINGS: . IMPRESSION: Pulmonary venous congestion.
[2025-01-28 07:04] LABS: Albumin 3.2 g/dL (3.2-4.8); BUN/Creatinine Ratio 22.3 (10.0-20.0); Magnesium 1.7 mg/dL (1.6-2.6)
[2025-01-28 07:07] LABS: Calcium 8.3 mg/dL (8.7-10.4); Phosphorus 2.3 mg/dL (2.4-5.1); Potassium 3.2 mmol/L (3.5-5.1)
[2025-01-28 07:08] LABS: Basophils # (auto) 0.1 10 ^3/uL (0-0.2); Basophils % (auto) 0.5 % (0.0-2.0); Eosinophils # (auto) 0.3 10 ^3/uL (0-0.8); Eosinophils % (auto) 3.1 % (0.0-7.0); Hematocrit 22.8 % (41.0-53.0); Hemoglobin 7.9 g/dL (13.5-17.5); Lymphocytes # (auto) 1.3 10 ^3/uL (0.4-5.4); Lymphocytes % (auto) 11.5 % (10.0-50.0); Mean Corpuscular Hgb Conc. 34.8 g/dL (32.0-36.0); Mean Corpuscular Volume 86.3 fL (80.0-100.0); Monocytes % (auto) 8.8 % (0.0-12.0); Neutrophils # (auto) 8.5 10 ^3/uL (1.6-8.6); Neutrophils % (auto) 76.1 % (37.0-80.0); Platelet Count (auto) 233 10^3/uL (140-450); Red Blood Cells 2.64 10^6/uL (4.5-5.90); Red Cell Distribution Width 13.1 % (11.8-14.3); White Blood Cell 11.1 10^3/uL (4.4-10.8)
[2025-01-28] MEDS: cefTRIAXone 1GM/50ML D5W 50 ML IV SCH (09:22)
[2025-01-28] MEDS ORDERED: MIDAZOLAM HCL 2MG/2ML 2ml VIAL (1mg/ml) ONE (10:52)
[2025-01-28] MEDS ORDERED: fentaNYL CITRATE 100 MCG/2 ML VL ONE (10:52)
[2025-01-28] MEDS ORDERED: LIDOCAINE VISCOUS 2% 15ML UD ONE (10:53)
[2025-01-28] MEDS ORDERED: PROPOFOL 10 MG/ML 20 ML IV ONE (10:55)
[2025-01-28] MEDS ORDERED: DexAMETHasone SOD PHOS 10MG/1ML VIAL INJ ONE (10:55)
--- NOTE | 2025-01-28 11:35 | DVHOP2 ---
Operative Report DATE OF OPERATION: 01/28/25 PROCEDURE: Upper Endoscopy with biopsy. PREOPERATIVE INDICATION: The patient is a 74 -year-old male undergoing endoscopy for history of upper GI bleed POSTOPERATIVE DIAGNOSES: 1. Patient had an abnormal large area of ulceration with necrosis and overlying eschar and some surrounding inflammatory changes at the diaphragmatic impingement between the 11 and 2 o'clock position and multiple biopsies were obtained to rule out malignancy 2. Patient had rfvh-cg-moeftyud gastritis and gastropathy involving the antrum and body of the stomach otherwise normal examination up to the 2nd and 3rd part of the duodenal with no active bleeding 3. There was a 2 cm sliding-type hiatal hernia with grade a erosive esophagitis also PROCEDURE PERFORMED BY: Sabine Gutierrez GI NURSE: Shira SCOPE: Olympus videoendoscope. ASA CLASS: 3. PREOPERATIVE MEDICATIONS: Dr. Sunny Fleming PROCEDURE IN DETAIL: After obtaining an informed consent, the patient was placed on left lateral decubitus position. The patient was then sedated with the above medications. A bite block was placed between his teeth. The endoscope was then passed through the oropharynx, into the esophagus, and through the stomach and pylorus up to the second and third part of the duodenum. The endoscope was then withdrawn. Second and 3rd part of the duodenal and the duodenal bulb were normal. Duodenal biopsies were obtained The pre-pyloric area antrum and distal body showed moderate gastritis and gastropathy with hyperemia erythema. Gastric biopsies were obtained. On retroflexion the fundus and cardia were normal except for inflammatory changes at the diaphragmatic impingement On careful evaluation there was an ulceration noted of the diaphragmatic impingement. The endoscope was then straightened and again there was a large area of 4-5 cm of ulceration with necrosis and overlying eschar extending from about 10-2 o'clock position. Multiple biopsies were obtained to rule out malignancy Patient had a 2 cm sliding-type hiatal hernia and grade a erosive esophagitis. The remaining distal and proximal esophagus and oropharynx were unremarkable. There was no fresh or old blood in the stomach. The patient tolerated the procedure well without difficulty. COMPLICATIONS : None SPECIMENS: Duodenal biopsies Gastric biopsies Biopsies of ulceration in the diaphragmatic impingement in the cardia and the GE junction area DISPOSITION: Transfer back to the floor Stable PLAN: 1. Await for biopsy result 2. Will place pt on Protonix 40 mg bid IV 3. Carafate suspension 1 g 4 times a day 4. Resume clear liquid diet advance to soft mechanical 5. DC NG-tube 6. I would recommend holding anticoagulation at this time SABINE GUTIERREZ MD Jan 28, 2025 11:35
[2025-01-28] MEDS: POTASSIUM CHL 20MEQ/100ML 100 ML IV ONE (16:28)
--- NOTE | 2025-01-28 16:48 | DVHPN2 ---
Subjective Feels better. Some cough after the procedures Reviewed: Care Plan, H&P, Labs, Medications, Previous Orders, Radiology, Other ([employer]) Changes from previous H/P or p: No Changes Objective Vitals Vital Signs Date Time Temp Pulse Resp B/P (MAP) Pulse Ox O2 Delivery O2 Flow Rate FiO2 01/28/25 16:23 98.3 74 18 119/65 (83) 95 98.3 01/28/25 11:35 Nasal Cannula 2.0 01/27/25 20:00 28 Intake/Output Intake and Output 01/28/25 07:00 Intake Total 1210 ml Output Total 1000 ml Balance 210 ml Intake Oral 750 ml IV Total 460 ml Output Urine Total 1000 ml # Voids 2 General Appearance: Alert, Oriented X3, Cooperative, No acute distress, m oderate distress, severe distress Lungs: Clear to auscultation, Normal air movement Cardiovascular: Regular rate, No murmurs Abdomen: Normal bowel sounds, Soft, No tenderness Extremities: Other (1+ bilateral lower extremity edema) Neuro: Other (Decreased motor function in the right lower extremity) Medications Current Medications Medications Dose Ordered Sig/Loco Route Start Time Stop Time Status Last Admin Dose Admin Pantoprazole Sodium 50 ml @ 10 mls/hr Q5H IV 01/25/25 21:00 01/28/25 12:36 10 MLS/HR Ondansetron HCl 4 mg Q4HP PRN IV 01/25/25 21:15 Nitroglycerin 0.4 mg Q5MINP PRN SL 01/25/25 21:15 Morphine Sulfate 2 mg Q30M PRN IV 01/25/25 21:15 Amino Acids 0 ml @ 0 mls/hr PER PHARMACY IV 01/27/25 10:00 Ceftriaxone Sodium 50 ml @ 100 mls/hr DAILY@09 IV 01/28/25 09:00 01/28/25 09:22 100 MLS/HR Metronidazole 100 ml @ 100 mls/hr Q8HR IV 01/27/25 14:00 01/28/25 05:18 100 MLS/HR Sodium Chloride 1,000 ml @ 50 mls/hr Q20H IV 01/27/25 10:15 01/28/25 06:24 50 MLS/HR Diagnostic Test (Pha) 1 strip Q6HR 01/28/25 00:00 01/28/25 12:35 1 STRIP Insulin Human Regular FOLLOW SLIDING SCALE Q6HR SC 01/28/25 00:00 Dextrose 50 ml UD IV 01/28/25 00:00 Amino Acids/ Electrolytes/ Dextrose 1,000 ml @ 41 mls/hr DAILY@2200 IV 01/27/25 22:00 01/28/25 21:59 01/27/25 22:26 41 MLS/HR Sucralfate 1 gm QID@0600,1130,1700,2200 PO 01/28/25 17:00 Amino Acids 1,000 ml @ 41 mls/hr DAILY@2200 IV 01/28/25 22:00 Laboratory Results Laboratory Tests 01/28/25 05:29 Chemistry Test 01/28/25 05:29 Albumin 3.2 g/dL (3.2-4.8) Calcium Level 8.3 mg/dL (8.7-10.4) L Magnesium Level 1.7 mg/dL (1.6-2.6) Phosphorus Level 2.3 mg/dL (2.4-5.1) L Lipid panel Test 01/28/25 05:29 Triglycerides Level 90 mg/dL (< 150) Urinalysis Test 01/25/25 15:30 Urine Color Light-yellow (Yellow) Urine Clarity Clear (Clear) Urine pH 5.5 (5.0-9.0) Urine Specific [place] 1.020 (1.001-1.035) Urine Protein Negative (Negative) Urine Ketones Negative (Negative) Urine Blood Negative /uL (Negative) Urine Nitrite Negative (Negative) Urine Bilirubin Negative (Negative) Urine Urobilinogen Normal mg/dL (Negative) Urine Leukocyte Esterase Negative /uL (Negative) Urine RBC None seen /hpf (0 - 3) Urine Microscopic WBC 2 /HPF (0-3) Urine Squamous Epithelial Cells None seen /hpf (<5) Urine Bacteria None seen /hpf (None Seen) Urine Glucose Normal mg/dL (Normal) Assessment/Plan Assessment/Plan GI bleed Gastritis Large gastric ulcer with necrosis status post biopsy Hiatal hernia with erosive esophagitis Gastritis History of CVA with right hemiplegia Coronary artery disease Hypertension Obesity Non-STEMI Drop in hemoglobin/anemia Mild coagulopathy Plan: Recheck H&H. Vitamin K. check A1c. Repeat chest x-ray. Further plan per orders Unstable for transfer at this time. Plan discussed with: Patient, Daughter My Orders Orders - MALCOLM,TONY E MD Procedure Category Date Status Time * Picc Line Consult CONS 01/28/25 Transmitted 16:27 Date of Service: Jan 28, 2025 Billing Provider: TONY FOWLER MD Common Visit Codes: [id number] INP/OBS CARE(HIGH) TONY FOWLER MD Jan 28, 2025 16:48
[2025-01-28] MEDS: SUCRALFATE 1 GM/10 ML ORAL SUSP PO SCH (18:16)
[2025-01-28] MEDS: phytonadione 2.5 MG in SODIUM CHL 0.9% 50 ML IV ONE (18:27)
[2025-01-28 18:37] LABS: Hematocrit 24.3 % (41.0-53.0); Hemoglobin 8.5 g/dL (13.5-17.5)
[2025-01-28] MEDS: POTASSIUM PHOSPHATE 22 MEQ in SODIUM CHL 0.9% 100 ML IV ONE (19:27)
[2025-01-28 23:16] LABS: Hematocrit 23.8 % (41.0-53.0); Hemoglobin 8.3 g/dL (13.5-17.5)
[2025-01-29] VITALS (8 sets, daily range): BP systolic 106–134; BP diastolic 58–72; PULSE 64–86; RESP 16–19; TEMP 97.6–98.3; O2SAT 95–98
[2025-01-29] MEDS: SUCRALFATE 1 GM/10 ML ORAL SUSP PO SCH (00:04)
[2025-01-29] MEDS: AMINO ACID INFUSION IN D5W 1,000 ML IV SCH (00:05)
--- NOTE | 2025-01-29 05:42 | DVH ---
CHEST RADIOGRAPH Indication: fu Technique: Single frontal view of the chest was obtained Comparison: XY CHEST PORTABLE on DOS: 01/28/25, XY CHEST PORTABLE on DOS: 01/27/25, XY CHEST PORTABLE on DOS: 01/27/25 IMPRESSION: There is elevation of the right hemidiaphragm. The heart appears prominent size. The lungs appear o therwise clear without focal airspace opacity, effusion, or pneumothorax.
[2025-01-29] MEDS ORDERED: PANTOPRAZOLE 40mg/50ML NS AE 50 ML IV SCH (06:15)
[2025-01-29 06:16] LABS: Basophils # (auto) 0 10 ^3/uL (0-0.2); Eosinophils # (auto) 0 10 ^3/uL (0-0.8); Lymphocytes # (auto) 0.8 10 ^3/uL (0.4-5.4); Red Cell Distribution Width 12.6 % (11.8-14.3); White Blood Cell 8.2 10^3/uL (4.4-10.8)
[2025-01-29 06:18] LABS: Basophils % (auto) 0.3 % (0.0-2.0); Eosinophils % (auto) 0.1 % (0.0-7.0); Hematocrit 22.7 % (41.0-53.0); Hemoglobin 8.3 g/dL (13.5-17.5); Lymphocytes % (auto) 9.6 % (10.0-50.0); Mean Corpuscular Hemoglobin 31.5 pg (28.0-32.0); Mean Corpuscular Hgb Conc. 36.3 g/dL (32.0-36.0); Mean Corpuscular Volume 86.7 fL (80.0-100.0); Monocytes # (auto) 0.4 10 ^3/uL (0-1.3); Monocytes % (auto) 4.6 % (0.0-12.0); Neutrophils % (auto) 85.4 % (37.0-80.0); Platelet Count (auto) 247 10^3/uL (140-450); Red Blood Cells 2.62 10^6/uL (4.5-5.90)
[2025-01-29 06:30] LABS: INR 1.11 (0.9-1.15); Prothrombin Time 11.6 sec (9.3-11.8)
[2025-01-29 06:32] LABS: Alanine Aminotransferase 12 U/L (7-40); Albumin 3.3 g/dL (3.2-4.8); Alkaline Phosphatase 53 U/L (46-116); Anion Gap 6 (5-15); Bilirubin, Total 0.3 mg/dL (0.2-1.0); Blood Urea Nitrogen 17 mg/dL (9-23); Carbon Dioxide 25 mmol/L (20-31); Magnesium 1.7 mg/dL (1.6-2.6); Sodium 139 mmol/L (136-145)
[2025-01-29 06:34] LABS: Aspartate Aminotransferase < 8 U/L (13-40); Calcium 8.6 mg/dL (8.7-10.4); Chloride 108 mmol/L (98-107); Glucose 170 mg/dL (74-106); Total Protein 5.2 g/dL (5.7-8.2)
[2025-01-29] MEDS: PANTOPRAZOLE 40mg/50ML NS AE 50 ML IV SCH (06:44)
--- NOTE | 2025-01-29 12:34 | DVHINCON2 ---
DEVAUGHN ALMAZAN [facility] 01/29/25 1233: Date Seen: Jan 29, 2025 Referring Physician MD Fabiola Reason for Consultation NSTEMI History of Present Illness This is a 74-year-old male patient who presents to emergency room with chief complaint of abdominal pain and hematemesis. The patient lives at the facility [facility] where staff noticed the incident and called emergency medical services. The patient was brought to emergency room for further evaluation. Cardiology has been consulted at this point for elevated troponin level. Initial twelve lead electrocardiogram reveals normal sinus rhythm with nonspecific ST segment changes and Q-waves seen in inferior leads. Initial troponin level of 68ng/L. The patient denies any cardiac symptoms. Significant past medical history includes hypertension, dyslipidemia, myocardial infarction, CVA with right-sided deficit, GERD, and a brain tumor. The patient denies following up with Cardiology in the outpatient setting. The patient reports being previously diagnosed with a myocardial infarction but never had any kind of ischemic workup. He is primarily seen at [place]. Past Medical History Past medical history reviewed. No other significant than mentioned above. Past Surgical History Denies Family History: Patient reports no known family medical history. Family History Family history reviewed. Social History Cigars X 30 years Denies illicit drug use Denies alcohol use Allergies: Coded Allergies: NO KNOWN ALLERGIES (Unverified , 01/25/25) Home Meds Reported Medications Losartan Potassium (Losartan Potassium) 100 Mg Tab, 1 TAB PO DAILY for 100 Days, #100 01/27/25 Clopidogrel Bisulfate (CLOPIDOGREL) 75 Mg Tab, 1 TAB PO DAILY for 100 Days, #100 01/27/25 Trazodone Hcl (Trazodone Hcl) 50 Mg Tab, 2 TAB PO DAILY for 100 Days, #200 01/27/25 Atorvastatin Calcium (Lipitor) 80 Mg Tab, 1 TAB PO DAILY for 100 Days, #100 01/27/25 Carvedilol (Carvedilol) 6.25 Mg Tab, 1 TAB PO BID for 100 Days, #200 01/27/25 Home Meds Home medications reviewed. Current Medications Current Medications Medications (Trade) Dose Ordered Sig/Loco Route PRN Reason Start Time Stop Time Status Last Admin Sucralfate (Carafate Susp) 1 gm QID@0600,1130,1700,2200 PO 01/28/25 17:00 01/28/25 23:35 DC 01/28/25 18:16 Amino Acids 1,000 ml @ 41 mls/hr DAILY@2200 IV 01/28/25 22:00 01/29/25 21:59 01/29/25 00:05 Sucralfate (Carafate Susp) 1 gm QID@0600,1130,1700,2200 PO 01/29/25 00:00 01/29/25 06:43 Pantoprazole Sodium 50 ml @ 10 mls/hr Q5H IV 01/29/25 06:15 01/29/25 06:16 DC Pantoprazole Sodium 50 ml @ 10 mls/hr Q5H IV 01/29/25 06:30 01/29/25 06:44 Amino Acids/ Electrolytes/ Dextrose 1,000 ml @ 41 mls/hr DAILY@2200 IV 01/29/25 22:00 Review of Systems Constitutional: No symptom reported Ears, Nose, & Throat: No symptom reported Eyes: No symptom reported Neurological: No symptoms reported Pulmonary/Respiratory: No symptoms reported Cardiovascular: No symptom reported Gastrointestinal: Hematemesis Genitourinary: No symptom reported Musculoskeletal: No symptom reported Skin: No symptom reported Psychiatric: No symptom reported Endocrine: No symptom reported Hematologic/Lymphatic: No symptom reported Vital Signs Vital Signs Date Time Temp Pulse Resp B/P (MAP) Pulse Ox O2 Delivery O2 Flow Rate FiO2 01/29/25 08:20 97.7 64 16 116/65 (82) 97 97.7 01/28/25 20:00 Nasal Cannula* 2 28 Physical Exam General Appearance: Cooperative. Well-developed. Well-nourished. No acute distress. Pulmonary/Respiratory: Clear, bilateral breaths sounds. Cardiovascular/Chest: Regular rate and rhythm. Peripheral Pulses: 2+ Radial (R). 2+ Radial (L). 2+ Pedal (R). 2+ Pedal (L) Abdominal Exam: Normal bowel sounds. Ankle Exam: Negative ankle edema Lower extremities: Negative lower extremity edema Neuro/Mental Status: A/OX4, coherent. Right-sided deficit Thoughts/Psych: Normal thought pattern. Appropriate mood and affect. Good judgm ent and insight. Appearance: No acute distress. Skin Exam: Normal inspection. Normal color. Warm and dry. Labs/Diagnostic Data Labs Test 01/29/25 05:30 01/29/25 00:07 01/28/25 18:01 3/7/25 05:29 Range/Units White Blood Count 8.2 # 4.4-10.8 10^3/uL Red Blood Count 2.62 L 4.5-5.90 10^6/uL Hemoglobin 8.3 L 13.5-17.5 g/dL Hematocrit 22.7 L 41.0-53.0 % Mean Corpuscular Volume 86.7 80.0-100.0 fL Mean Corpuscular Hemoglobin 31.5 28.0-32.0 pg Mean Corpuscular Hemoglobin Concent 36.3 H 32.0-36.0 g/dL Red Cell Distribution Width 12.6 11.8-14.3 % Platelet Count 247 140-450 10^3/uL Mean Platelet Volume 7.2 6.9-10.8 fL Neutrophils (%) (Auto) 85.4 H 37.0-80.0 % Lymphocytes (%) (Auto) 9.6 L 10.0-50.0 % Monocytes (%) (Auto) 4.6 0.0-12.0 % Eosinophils (%) (Auto) 0.1 0.0-7.0 % Basophils (%) (Auto) 0.3 0.0-2.0 % Neutrophils # (Auto) 7.0 1.6-8.6 10 ^3/uL Lymphocytes # (Auto) 0.8 0.4-5.4 10 ^3/uL Monocytes # (Auto) 0.4 0-1.3 10 ^3/uL Eosinophils # (Auto) 0 0-0.8 10 ^3/uL Basophils # (Auto) 0 0-0.2 10 ^3/uL Nucleated Red Blood Cells 0.0 % Prothrombin Time 11.6 9.3-11.8 sec Prothrombin Time INR 1.11 0.9-1.15 Sodium Level 139 136-145 mmol/L Potassium Level 4.0 3.5-5.1 mmol/L Chloride Level 108 H 98-107 mmol/L Carbon Dioxide Level 25 20-31 mmol/L Anion Gap 6 5-15 Blood Urea Nitrogen 17 9-23 mg/dL Creatinine 0.85 0.700-1.30 mg/dL Glomerular Filtration Rate Calc 92 >90 mL/min BUN/Creatinine Ratio 20.0 10.0-20.0 Serum Glucose 170 H 74-106 mg/dL Calcium Level 8.6 L 8.7-10.4 mg/dL Phosphorus Level 3.0 2.4-5.1 mg/dL Magnesium Level 1.7 1.6-2.6 mg/dL Total Bilirubin 0.3 0.2-1.0 mg/dL Aspartate Amino Transferase (AST) < 8 L 13-40 U/L Alanine Aminotransferase (ALT) 12 7-40 U/L Alkaline Phosphatase 53 46-116 U/L B-Type Natriuretic Peptide 257.41 0-100 pg/mL Total Protein 5.2 L 5.7-8.2 g/dL Albumin 3.3 3.2-4.8 g/dL POC Glucose 174 H 70-106 mg/dl Hemoglobin A1c 5.8 H <5.7 % A1C Estimated GFR () 101 mL/min Estimated GFR (Non- 84 mL/min Triglycerides Level 90 < 150 mg/dL Test 01/25/25 20:52 01/25/25 19:30 01/25/25 15:30 Range/Units Activated Partial Thromboplast Time 29.4 24.5-34.5 SEC Lactic Acid Level 2.0 0.4-2.0 mmol/L Troponin I High Sensitivity 69 *H </=54 ng/L Urine Color Light-yellow Yellow Urine Clarity Clear Clear Urine pH 5.5 5.0-9.0 Urine Specific [place] 1.020 1.001-1.035 Urine Protein Negative Negative Urine Ketones Negative Negative Urine Blood Negative Negative /uL Urine Nitrite Negative Negative Urine Bilirubin Negative Negative Urine Urobilinogen Normal Negative mg/dL Urine Leukocyte Esterase Negative Negative /uL Urine RBC None seen 0 - 3 /hpf Urine Microscopic WBC 2 0-3 /HPF Urine Squamous Epithelial Cells None seen <5 /hpf Urine Bacteria None seen None Seen /hpf Urine Glucose Normal Normal mg/dL Assessment NSTEMI, possibly type 1 Chronic compensated HFrEF, NYHA class II Hypertension Dyslipidemia History myocardial infarction Acute anemia Gastrointestinal bleed CVA with right-sided deficits (on Plavix) Tobacco use Obesity Plan/Recommendation We will continue with the following plan/recommendations (Dr. Vreas): Patient seen and examined at bedside with . Transthoracic echocardiogram reveals EF 40% with anterior apical hypokinesis. We will recommend to initiate guideline directed medical therapy for CHF as tolerated. Consider adding MRA (spironolactone) upon discharge if potassium stable. Elevated troponin level possibly secondary to underlying coronary artery disease. The patient denies ever having any kind of ischemic workup including stress test or coronary angiogram. Given that the patient is here for a GI bleed and has been taken off of antiplatelet therapy, the patient is not an ideal candidate to undergo any kind of invasive cardiac procedure. He denies any cardiac symptoms at this time. We will recommend for the patient to be stabilized and follow up with Cardiology in the outpatient setting. Plan of care discussed with the patient as well as his daughter who was at bedside. There is no further inpatient cardiac workup indicated at this time. Thank you for allowing us to care for this patient. Please call with any questions or concerns. Critical care time spent:42 minutes This medical document was created using an electronic medical record system with voice recognition software and computerized dictation system. Although this document has been carefully reviewed, there might still be some phonetic and typographical errors. Occasional wrong-word or ``sound-alike substitutions may have occurred due to the inherent limitations of voice recognition software. These areas are purely typographical due to imperfections of the software programs and do not reflect any compromise in the patient's medical care. Please read the chart carefully and recognize, using context, where these substitutions have occurred. Plan discussed with: Patient, Daughter NYHA Physical activity limitations: Class2(Slight)fatigue,sob (palpitatns, angina w activityv) Date of Service: Jan 29, 2025 Billing Provider: DEVAUGHN ALMAZAN Cardiology Common Codes: [id number] INP/OBS CARE (High) Cardiology Consultation Codes: [id number] CONSULT <45MIN GALILEO VERAS MD 01/29/25 1614: Family History: Patient reports no known family medical history. Allergies: Coded Allergies: NO KNOWN ALLERGIES (Unverified , 01/25/25) Home Meds Reported Medications Losartan Potassium (Losartan Potassium) 100 Mg Tab, 1 TAB PO DAILY for 100 Days, #100 01/27/25 Clopidogrel Bisulfate (CLOPIDOGREL) 75 Mg Tab, 1 TAB PO DAILY for 100 Days, #100 01/27/25 Trazodone Hcl (Trazodone Hcl) 50 Mg Tab, 2 TAB PO DAILY for 100 Days, #200 01/27/25 Atorvastatin Calcium (Lipitor) 80 Mg Tab, 1 TAB PO DAILY for 100 Days, #100 01/27/25 Carvedilol (Carvedilol) 6.25 Mg Tab, 1 TAB PO BID for 100 Days, #200 01/27/25 Plan/Recommendation nstemi likely type 2 given low level of trop inferior mi old on ecg not a candidate for ischemic eval given gi bleed hold plavix per GI fu with [employer] for stress test in future Plan discussed with: Patient DEVAUGHN ALMAZAN SONAM Jan 29, 2025 12:33 GALILEO VERAS MD Jan 29, 2025 16:14
--- NOTE | 2025-01-29 15:03 | DVHPN2 ---
Progress Note - Dictate Date Seen: Jan 29, 2025 Medical Necessity Reason Pt with a Central, PICC or Fol: No Subjective No new complaints Tolerating clear liquid diet Only 1 BM today Vitals and labs stable;, hemoglobin stable at 8.3 Leukocytosis improving vital signs Vital Sign Date Time Temp Pulse Resp B/P (MAP) Pulse Ox O2 Delivery O2 Flow Rate FiO2 01/29/25 13:00 97.6 68 19 121/68 (85) 96 97.6 01/28/25 20:00 Nasal Cannula* 2 28 Total Intake and Output 01/28/25 01/28/25 01/29/25 15:00 23:00 07:00 Intake Total 630 ml 980.25 ml 1000 ml Balance 630 ml 980.25 ml 1000 ml medications Current Medications Medications Dose Ordered Sig/Loco Route Start Time Stop Time Status Last Admin Dose Admin Ondansetron HCl 4 mg Q4HP PRN IV 01/25/25 21:15 Nitroglycerin 0.4 mg Q5MINP PRN SL 01/25/25 21:15 Morphine Sulfate 2 mg Q30M PRN IV 01/25/25 21:15 Amino Acids 0 ml @ 0 mls/hr PER PHARMACY IV 01/27/25 10:00 Ceftriaxone Sodium 50 ml @ 100 mls/hr DAILY@09 IV 01/28/25 09:00 01/29/25 10:19 100 MLS/HR Metronidazole 100 ml @ 100 mls/hr Q8HR IV 01/27/25 14:00 01/29/25 05:20 100 MLS/HR Sodium Chloride 1,000 ml @ 50 mls/hr Q20H IV 01/27/25 10:15 01/29/25 02:15 50 MLS/HR Diagnostic Test (Pha) 1 strip Q6HR 01/28/25 00:00 01/29/25 12:00 1 STRIP Insulin Human Regular FOLLOW SLIDING SCALE Q6HR SC 01/28/25 00:00 01/29/25 06:38 4 UNITS Dextrose 50 ml UD IV 01/28/25 00:00 Amino Acids 1,000 ml @ 41 mls/hr DAILY@2200 IV 01/28/25 22:00 01/29/25 21:59 01/29/25 00:05 41 MLS/HR Sucralfate 1 gm QID@0600,1130,1700,2200 PO 01/29/25 00:00 01/29/25 06:43 1 GM Pantoprazole Sodium 50 ml @ 10 mls/hr Q5H IV 01/29/25 06:30 01/29/25 06:44 10 MLS/HR Amino Acids/ Electrolytes/ Dextrose 1,000 ml @ 41 mls/hr DAILY@2200 IV 01/29/25 22:00 Cancel Amino Acids/ Electrolytes/ Dextrose 2,000 ml @ 41 mls/hr DAILY@2200 IV 01/29/25 22:00 objective General: NAD, AAOX3 Chest: lung garcia clear to auscultation Heart: RRR, no murmur Abdomen: non-distended, no tenderness to palpation, +BS laboratory and microbiology Laboratory Tests 01/29/25 05:30 Test 01/29/25 05:30 Range/Units Serum Glucose 170 H 74-106 mg/dL Problems(with codes): (1) GI bleed (2) Esophagogastric ulcer Prognosis PLAN Continue IV Protonix 40 mg q 12 hrs Carafate suspension 1 gm po 4 x day Advance to full liquid diet Hold blood thinners aspirin NSAIDs Await pathology results Dietary Evaluation Review Comments: 1) Consider TPN/PN if NPO >7 days 2) Advance diet as medically feasible 3) Continue current plan of care Expected Outcomes/Goals: Pt will meet 75% estimated needs Fu 2-3 days Plan discussed with: Daughter, Other (Nurse Jeanna) CC Plasma Assessment Blood Product Administration S: [id number] SABINE MCCORD MD Jan 29, 2025 15:03
--- NOTE | 2025-01-29 16:48 | DVHPN2 ---
Subjective No chest pain and no shortness a breath Reviewed: Care Plan, H&P, Labs, Medications, Previous Orders, Radiology, Other (Night Monitor) Changes from previous H/P or p: No Changes Objective Vitals Vital Signs Date Time Temp Pulse Resp B/P (MAP) Pulse Ox O2 Delivery O2 Flow Rate FiO2 01/29/25 13:00 97.6 68 19 121/68 (85) 96 97.6 01/28/25 20:00 Nasal Cannula* 2 28 Intake/Output Intake and Output 01/29/25 07:00 Intake Total 2610.25 ml Balance 2610.25 ml Intake Oral 2200 ml IV Total 410.25 ml # Voids 12 # Bowel Movements 6 General Appearance: Alert, Oriented X3, Cooperative, No acute distress, m oderate distress, severe distress Lungs: Clear to auscultation, Normal air movement Cardiovascular: Regular rate, No murmurs Abdomen: Normal bowel sounds, Soft, No tenderness Extremities: Other (Positive bilateral lower extremity edema 1+) Neuro: Other (Decreased motor function in the right lower extremity) Medications Current Medications Medications Dose Ordered Sig/Loco Route Start Time Stop Time Status Last Admin Dose Admin Ondansetron HCl 4 mg Q4HP PRN IV 01/25/25 21:15 Nitroglycerin 0.4 mg Q5MINP PRN SL 01/25/25 21:15 Morphine Sulfate 2 mg Q30M PRN IV 01/25/25 21:15 Amino Acids 0 ml @ 0 mls/hr PER PHARMACY IV 01/27/25 10:00 Ceftriaxone Sodium 50 ml @ 100 mls/hr DAILY@09 IV 01/28/25 09:00 01/29/25 10:19 100 MLS/HR Metronidazole 100 ml @ 100 mls/hr Q8HR IV 01/27/25 14:00 01/29/25 14:00 100 MLS/HR Sodium Chloride 1,000 ml @ 50 mls/hr Q20H IV 01/27/25 10:15 01/29/25 02:15 50 MLS/HR Diagnostic Test (Pha) 1 strip Q6HR 01/28/25 00:00 01/29/25 12:00 1 STRIP Insulin Human Regular FOLLOW SLIDING SCALE Q6HR SC 01/28/25 00:00 01/29/25 06:38 4 UNITS Dextrose 50 ml UD IV 01/28/25 00:00 Amino Acids 1,000 ml @ 41 mls/hr DAILY@2200 IV 01/28/25 22:00 01/29/25 21:59 01/29/25 00:05 41 MLS/HR Sucralfate 1 gm QID@0600,1130,1700,2200 PO 01/29/25 00:00 01/29/25 16:36 1 GM Pantoprazole Sodium 50 ml @ 10 mls/hr Q5H IV 01/29/25 06:30 01/29/25 16:37 10 MLS/HR Amino Acids/ Electrolytes/ Dextrose 1,000 ml @ 41 mls/hr DAILY@2200 IV 01/29/25 22:00 Cancel Amino Acids/ Electrolytes/ Dextrose 2,000 ml @ 41 mls/hr DAILY@2200 IV 01/29/25 22:00 Metoprolol Succinate 25 mg DAILY PO 01/30/25 10:00 Empaglifozin 10 mg DAILY PO 01/30/25 10:00 Losartan Potassium 25 mg DAILY PO 01/30/25 10:00 Laboratory Results Laboratory Tests 01/29/25 05:30 Chemistry Test 01/29/25 05:30 Albumin 3.3 g/dL (3.2-4.8) Calcium Level 8.6 mg/dL (8.7-10.4) L Magnesium Level 1.7 mg/dL (1.6-2.6) Phosphorus Level 3.0 mg/dL (2.4-5.1) Total Protein 5.2 g/dL (5.7-8.2) L Coagulation Test 01/29/25 05:30 Prothrombin Time 11.6 sec (9.3-11.8) Prothrombin Time INR 1.11 (0.9-1.15) Cardiac Markers Test 01/29/25 05:30 B-Type Natriuretic Peptide 257.41 pg/mL (0-100) LFT Test 01/29/25 05:30 Alanine Aminotransferase (ALT) 12 U/L (7-40) Alkaline Phosphatase 53 U/L (46-116) Aspartate Amino Transferase (AST) < 8 U/L (13-40) L Total Bilirubin 0.3 mg/dL (0.2-1.0) HgA1c, TSH Test 01/28/25 18:01 Hemoglobin A1c 5.8 % A1C (<5.7) H Urinalysis Test 01/25/25 15:30 Urine Color Light-yellow (Yellow) Urine Clarity Clear (Clear) Urine pH 5.5 (5.0-9.0) Urine Specific [place] 1.020 (1.001-1.035) Urine Protein Negative (Negative) Urine Ketones Negative (Negative) Urine Blood Negative /uL (Negative) Urine Nitrite Negative (Negative) Urine Bilirubin Negative (Negative) Urine Urobilinogen Normal mg/dL (Negative) Urine Leukocyte Esterase Negative /uL (Negative) Urine RBC None seen /hpf (0 - 3) Urine Microscopic WBC 2 /HPF (0-3) Urine Squamous Epithelial Cells None seen /hpf (<5) Urine Bacteria None seen /hpf (None Seen) Urine Glucose Normal mg/dL (Normal) Assessment/Plan Assessment/Plan GI bleed Gastritis Large gastric ulcer with necrosis status post biopsy Hiatal hernia with erosive esophagitis Gastritis History of CVA with right hemiplegia Coronary artery disease Hypertension Obesity Non-STEMI Drop in hemoglobin/anemia Mild coagulopathy Plan: Cardiology consultation obtained. They indicated no further workup as inpatient given the recent GI bleed. Possible home tomorrow if stable and if okay with GI. Unstable for transfer at this time Plan discussed with: Patient, Daughter My Orders Orders - TONY FOWLER MD Procedure Category Date Status Time Chest Portable XY 01/29/25 Resulted 06:00 * Cardiology Consult CONS 01/29/25 Transmitted 12:23 Date of Service: Jan 29, 2025 Billing Provider: TONY FOWLER MD Common Visit Codes: [id number] INP/OBS CARE(HIGH) TONY FOWLER MD Jan 29, 2025 16:48
[2025-01-29] MEDS ORDERED: AMINO ACID INFUSION IN D10W 1,000 ML IV SCH (22:00)
[2025-01-29] MEDS: AMINO ACID INFUSION IN D10W 2,000 ML IV SCH (23:51)
[2025-01-30 01:00] VITALS: BP 143/73; PULSE 71; RESP 18; TEMP 97; O2SAT 98
[2025-01-30 05:00] VITALS: BP 124/79; PULSE 69; RESP 20; TEMP 98.5; O2SAT 97
[2025-01-30 06:26] LABS: Alkaline Phosphatase 49 U/L (46-116); Anion Gap 10 (5-15); BUN/Creatinine Ratio 17.1 (10.0-20.0); Blood Urea Nitrogen 14 mg/dL (9-23); Carbon Dioxide 24 mmol/L (20-31); Chloride 105 mmol/L (98-107); Magnesium 1.8 mg/dL (1.6-2.6); Sodium 139 mmol/L (136-145)
[2025-01-30 06:27] LABS: Phosphorus 2.5 mg/dL (2.4-5.1)
[2025-01-30 06:42] LABS: Alanine Aminotransferase < 9 U/L (7-40); Albumin 3.1 g/dL (3.2-4.8); Aspartate Aminotransferase 11 U/L (13-40); Bilirubin, Total 0.3 mg/dL (0.2-1.0); Calcium 8.5 mg/dL (8.7-10.4); Glucose 152 mg/dL (74-106); Potassium 3.4 mmol/L (3.5-5.1); Total Protein 4.9 g/dL (5.7-8.2)
[2025-01-30 08:00] VITALS: PULSE 66; PULSE 68; RESP 16; O2SAT 97
[2025-01-30 08:30] VITALS: BP 137/66; PULSE 81; RESP 16; TEMP 97.9; O2SAT 97
[2025-01-30] MEDS: POTASSIUM CHL 20MEQ/100ML 100 ML IV SCH (10:15)
[2025-01-30 12:30] VITALS: BP 138/68; PULSE 70; RESP 14; TEMP 97.6; O2SAT 97
[2025-01-30] MEDS: SOD CHL 0.9%/ KCL 40MEQ 1,000 ML IV SCH (13:15)
[2025-01-30] MEDS: METOPROLOL SUCCINATE XL 50 MG TAB PO SCH (13:20)
[2025-01-30] MEDS: EMPAGLIFLOZIN 10 MG TAB PO SCH (13:21)
[2025-01-30] MEDS: LOSARTAN POTASSIUM 25 MG TAB PO SCH (13:21)
--- NOTE | 2025-01-30 14:07 | DVHPN2 ---
Subjective Feels okay. Reviewed: Care Plan, H&P, Labs, Medications, Previous Orders, Radiology, Other (Peripheral Edp Equipment Operator) Changes from previous H/P or p: No Changes Objective Vitals Vital Signs Date Time Temp Pulse Resp B/P (MAP) Pulse Ox O2 Delivery O2 Flow Rate FiO2 01/30/25 13:21 138/68 01/30/25 13:20 70 01/30/25 08:30 97.9 16 97 97.9 01/29/25 20:00 Nasal Cannula* 2 28 Intake/Output Intake and Output 01/30/25 07:00 Intake Total 2650 ml Output Total 2 ml Balance 2648 ml Intake Oral 1750 ml Tube Feeding 900 ml Stool Total 2 ml # Voids 5 # Bowel Movements 2 General Appearance: Alert, Oriented X3, Cooperative, No acute distress, m oderate distress, severe distress Lungs: Clear to auscultation, Normal air movement Cardiovascular: Regular rate, No murmurs Abdomen: Normal bowel sounds, Soft, No tenderness Extremities: Other (1+ bilateral lower extremity edema) Neuro: Other (Decreased motor function in the right lower extremity) Medications Current Medications Medications Dose Ordered Sig/Loco Route Start Time Stop Time Status Last Admin Dose Admin Ondansetron HCl 4 mg Q4HP PRN IV 01/25/25 21:15 Nitroglycerin 0.4 mg Q5MINP PRN SL 01/25/25 21:15 Morphine Sulfate 2 mg Q30M PRN IV 01/25/25 21:15 Ceftriaxone Sodium 50 ml @ 100 mls/hr DAILY@09 IV 01/28/25 09:00 01/30/25 09:00 100 MLS/HR Metronidazole 100 ml @ 100 mls/hr Q8HR IV 01/27/25 14:00 01/30/25 05:19 100 MLS/HR Diagnostic Test (Pha) 1 strip Q6HR 01/28/25 00:00 01/30/25 12:00 1 STRIP Insulin Human Regular FOLLOW SLIDING SCALE Q6HR SC 01/28/25 00:00 01/30/25 05:14 2 UNITS Dextrose 50 ml UD IV 01/28/25 00:00 Sucralfate 1 gm QID@0600,1130,1700,2200 PO 01/29/25 00:00 01/30/25 13:10 1 GM Pantoprazole Sodium 50 ml @ 10 mls/hr Q5H IV 01/29/25 06:30 01/30/25 13:14 10 MLS/HR Amino Acids/ Electrolytes/ Dextrose 1,000 ml @ 41 mls/hr DAILY@2200 IV 01/29/25 22:00 Cancel Metoprolol Succinate 25 mg DAILY PO 01/30/25 10:00 01/30/25 13:20 25 MG Empaglifozin 10 mg DAILY PO 01/30/25 10:00 01/30/25 13:21 10 MG Losartan Potassium 25 mg DAILY PO 01/30/25 10:00 01/30/25 13:21 25 MG Potassium Chloride/Sodium Chloride 1,000 ml @ 75 mls/hr [id number] IV 01/30/25 08:15 01/30/25 13:15 75 MLS/HR Laboratory Results Laboratory Tests 01/29/25 05:30 01/30/25 05:05 Chemistry Test 01/30/25 05:05 Albumin 3.1 g/dL (3.2-4.8) L Calcium Level 8.5 mg/dL (8.7-10.4) L Magnesium Level 1.8 mg/dL (1.6-2.6) Phosphorus Level 2.5 mg/dL (2.4-5.1) Total Protein 4.9 g/dL (5.7-8.2) L LFT Test 01/30/25 05:05 Alanine Aminotransferase (ALT) < 9 U/L (7-40) Alkaline Phosphatase 49 U/L (46-116) Aspartate Amino Transferase (AST) 11 U/L (13-40) L Total Bilirubin 0.3 mg/dL (0.2-1.0) Urinalysis Test 01/25/25 15:30 Urine Color Light-yellow (Yellow) Urine Clarity Clear (Clear) Urine pH 5.5 (5.0-9.0) Urine Specific [place] 1.020 (1.001-1.035) Urine Protein Negative (Negative) Urine Ketones Negative (Negative) Urine Blood Negative /uL (Negative) Urine Nitrite Negative (Negative) Urine Bilirubin Negative (Negative) Urine Urobilinogen Normal mg/dL (Negative) Urine Leukocyte Esterase Negative /uL (Negative) Urine RBC None seen /hpf (0 - 3) Urine Microscopic WBC 2 /HPF (0-3) Urine Squamous Epithelial Cells None seen /hpf (<5) Urine Bacteria None seen /hpf (None Seen) Urine Glucose Normal mg/dL (Normal) Assessment/Plan Assessment/Plan GI bleed Gastritis 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 As per Dr. Gutierrez recommendation is to keep patient one more day for better monitoring. Plan discussed with: Patient, Daughter, Other (Dr. Gutierrez) My Orders Orders - TONY FOWLER MD Procedure Category Date Status Time Sod Chl 0.9%/ Kcl PHA 01/30/25 In Process 40meq 08:15 Pureed DIET 01/30/25 Transmitted Lunch Date of Service: Jan 30, 2025 Billing Provider: TONY FOWLER MD Common Visit Codes: [id number] INP/OBS CARE(HIGH) TONY FOWLER MD Jan 30, 2025 14:07
--- NOTE | 2025-01-30 14:27 | DVHDS2 ---
Discharge Summary Date of Admission Jan 25, 2025 at 21:15 Date of Discharge: Jan 30, 2025 Admitting Diagnosis GI bleed Labs/Diagnostic Data: Laboratory Results Test 01/30/25 05:05 01/29/25 16:43 01/29/25 05:30 01/28/25 18:01 Sodium Level 139 mmol/L (136-145) Potassium Level 3.4 mmol/L (3.5-5.1) Chloride Level 105 mmol/L (98-107) Carbon Dioxide Level 24 mmol/L (20-31) Anion Gap 10 (5-15) Blood Urea Nitrogen 14 mg/dL (9-23) Creatinine 0.82 mg/dL (0.700-1.30) Glomerular Filtration Rate Calc 93 mL/min (>90) BUN/Creatinine Ratio 17.1 (10.0-20.0) Serum Glucose 152 mg/dL (74-106) Calcium Level 8.5 mg/dL (8.7-10.4) Phosphorus Level 2.5 mg/dL (2.4-5.1) Magnesium Level 1.8 mg/dL (1.6-2.6) Total Bilirubin 0.3 mg/dL (0.2-1.0) Aspartate Amino Transferase (AST) 11 U/L (13-40) Alanine Aminotransferase (ALT) < 9 U/L (7-40) Alkaline Phosphatase 49 U/L (46-116) Total Protein 4.9 g/dL (5.7-8.2) Albumin 3.1 g/dL (3.2-4.8) POC Glucose 158 mg/dl (70-106) White Blood Count 8.2 10^3/uL (4.4-10.8) Red Blood Count 2.62 10^6/uL (4.5-5.90) Hemoglobin 8.3 g/dL (13.5-17.5) Hematocrit 22.7 % (41.0-53.0) Mean Corpuscular Volume 86.7 fL (80.0-100.0) Mean Corpuscular Hemoglobin 31.5 pg (28.0-32.0) Mean Corpuscular Hemoglobin Concent 36.3 g/dL (32.0-36.0) Red Cell Distribution Width 12.6 % (11.8-14.3) Platelet Count 247 10^3/uL (140-450) Mean Platelet Volume 7.2 fL (6.9-10.8) Neutrophils (%) (Auto) 85.4 % (37.0-80.0) Lymphocytes (%) (Auto) 9.6 % (10.0-50.0) Monocytes (%) (Auto) 4.6 % (0.0-12.0) Eosinophils (%) (Auto) 0.1 % (0.0-7.0) Basophils (%) (Auto) 0.3 % (0.0-2.0) Neutrophils # (Auto) 7.0 10 ^3/uL (1.6-8.6) Lymphocytes # (Auto) 0.8 10 ^3/uL (0.4-5.4) Monocytes # (Auto) 0.4 10 ^3/uL (0-1.3) Eosinophils # (Auto) 0 10 ^3/uL (0-0.8) Basophils # (Auto) 0 10 ^3/uL (0-0.2) Nucleated Red Blood Cells 0.0 % Prothrombin Time 11.6 sec (9.3-11.8) Prothrombin Time INR 1.11 (0.9-1.15) B-Type Natriuretic Peptide 257.41 pg/mL (0-100) Hemoglobin A1c 5.8 % A1C (<5.7) Test 01/28/25 05:29 01/25/25 20:52 01/25/25 19:30 01/25/25 15:30 Estimated GFR () 101 mL/min Estimated GFR (Non- 84 mL/min Triglycerides Level 90 mg/dL (< 150) Activated Partial Thromboplast Time 29.4 SEC (24.5-34.5) Lactic Acid Level 2.0 mmol/L (0.4-2.0) Troponin I High Sensitivity 69 ng/L (</=54) Urine Color Light-yellow (Yellow) Urine Clarity Clear (Clear) Urine pH 5.5 (5.0-9.0) Urine Specific [place] 1.020 (1.001-1.035) Urine Protein Negative (Negative) Urine Ketones Negative (Negative) Urine Blood Negative /uL (Negative) Urine Nitrite Negative (Negative) Urine Bilirubin Negative (Negative) Urine Urobilinogen Normal mg/dL (Negative) Urine Leukocyte Esterase Negative /uL (Negative) Urine RBC None seen /hpf (0 - 3) Urine Microscopic WBC 2 /HPF (0-3) Urine Squamous Epithelial Cells None seen /hpf (<5) Urine Bacteria None seen /hpf (None Seen) Urine Glucose Normal mg/dL (Normal) Other Laboratory Tests 01/30/25 05:05 01/29/25 05:30 Brief Hx & Hospital Course: 74-year-old gentleman admitted to the hospital from the emergency room because of GI bleed and drop in the hemoglobin. Patient was found to have also elevated troponin. GI consultation obtained. EGD done showed large gastric ulcer with some necrosis. Biopsies done. Cardiology consultation obtained because of elevated troponin in the ED patient needs to have workup as outpatient and when there is no more bleeding. Patient feels better. 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 Hiatal hernia with erosive esophagitis Gastritis History of CVA with right hemiplegia Coronary artery disease Hypertension Obesity Non-STEMI Drop in hemoglobin/anemia Mild coagulopathy Discharge Disposition: Acute Care Facility Discharge Instruct/Medications Diet: See Comment (Puree) Activity: No Restrictions, As Tolerated Activity comment: Per receiving facility Follow Up/Referral: Per receiving facility Medications: Continue current medications as per list 52 Discharge Statement: "Patient was advised to return to the ER or call 911 if any headaches, dizziness, shortness of breath, chest pain, abdominal pain, bleeding, fevers, or worsening of medical condition. Patient was counseled about treatment plan, medications, possible side effects, patientverbalized understanding. All questions were answered to the best of my ability. This discharge took greater then 30 minutes in planning, reviewing documentation, counseling the patient, and discussing with other team members." ASSESSMENT ASSESSMENT Assessment Date of Service: Jan 30, 2025 Billing Provider: TONY FOWLER MD Common Visit Codes: [id number] DISCH DAY >30min TONY FOWLER MD Jan 30, 2025 14:27
[2025-01-30 16:30] VITALS: BP 149/74; PULSE 66; RESP 16; TEMP 97.5; O2SAT 97
[2025-01-30 16:48] LABS: Basophils # (auto) 0 10 ^3/uL (0-0.2); Basophils % (auto) 0.3 % (0.0-2.0); Eosinophils # (auto) 0.2 10 ^3/uL (0-0.8); Eosinophils % (auto) 1.6 % (0.0-7.0); Hematocrit 26.8 % (41.0-53.0); Hemoglobin 9.2 g/dL (13.5-17.5); Lymphocytes # (auto) 1.9 10 ^3/uL (0.4-5.4); Lymphocytes % (auto) 17.7 % (10.0-50.0); Mean Corpuscular Hemoglobin 29.9 pg (28.0-32.0); Mean Corpuscular Hgb Conc. 34.3 g/dL (32.0-36.0); Mean Corpuscular Volume 87.2 fL (80.0-100.0); Monocytes # (auto) 1.1 10 ^3/uL (0-1.3); Monocytes % (auto) 10.4 % (0.0-12.0); Neutrophils # (auto) 7.6 10 ^3/uL (1.6-8.6); Nucleated Red Blood Cells % 0.1 %; Platelet Count (auto) 354 10^3/uL (140-450); Red Blood Cells 3.08 10^6/uL (4.5-5.90); Red Cell Distribution Width 12.9 % (11.8-14.3); White Blood Cell 10.9 10^3/uL (4.4-10.8)
--- NOTE | 2025-01-30 21:55 | DVHPN2 ---
Progress Note - Dictate Date Seen: Jan 30, 2025 Medical Necessity Reason Pt with a Central, PICC or Fol: No Subjective No new complaints, denies any chest pain Tolerating pureed diet Only 1 BM today, patient is still has dark stools Vitals and labs stable;, hemoglobin stable at 9.2 Leukocytosis improving vital signs Vital Sign Date Time Temp Pulse Resp B/P (MAP) Pulse Ox O2 Delivery O2 Flow Rate FiO2 01/30/25 20:00 Nasal Cannula* 2 28 01/30/25 16:30 97.5 66 16 149/74 (99) 97 97.5 Total Intake and Output 01/29/25 01/29/25 01/30/25 15:00 23:00 07:00 Intake Total 800 ml 1850 ml Output Total 2 ml Balance 800 ml 1848 ml medications Current Medications Medications Dose Ordered Sig/Loco Route Start Time Stop Time Status Last Admin Dose Admin Ondansetron HCl 4 mg Q4HP PRN IV 01/25/25 21:15 Nitroglycerin 0.4 mg Q5MINP PRN SL 01/25/25 21:15 Morphine Sulfate 2 mg Q30M PRN IV 01/25/25 21:15 Ceftriaxone Sodium 50 ml @ 100 mls/hr DAILY@09 IV 01/28/25 09:00 01/30/25 09:00 100 MLS/HR Metronidazole 100 ml @ 100 mls/hr Q8HR IV 01/27/25 14:00 01/30/25 14:00 100 MLS/HR Diagnostic Test (Pha) 1 strip Q6HR 01/28/25 00:00 01/30/25 18:00 1 STRIP Insulin Human Regular FOLLOW SLIDING SCALE Q6HR SC 01/28/25 00:00 01/30/25 05:14 2 UNITS Dextrose 50 ml UD IV 01/28/25 00:00 Sucralfate 1 gm QID@0600,1130,1700,2200 PO 01/29/25 00:00 01/30/25 17:00 1 GM Pantoprazole Sodium 50 ml @ 10 mls/hr Q5H IV 01/29/25 06:30 01/30/25 20:47 10 MLS/HR Amino Acids/ Electrolytes/ Dextrose 1,000 ml @ 41 mls/hr DAILY@2200 IV 01/29/25 22:00 Cancel Metoprolol Succinate 25 mg DAILY PO 01/30/25 10:00 01/30/25 13:20 25 MG Empaglifozin 10 mg DAILY PO 01/30/25 10:00 01/30/25 13:21 10 MG Losartan Potassium 25 mg DAILY PO 01/30/25 10:00 01/30/25 13:21 25 MG Potassium Chloride/Sodium Chloride 1,000 ml @ 75 mls/hr [id number] IV 01/30/25 08:15 01/30/25 13:15 75 MLS/HR objective General: NAD, AAOX3 Chest: lung garcia clear to auscultation Heart: RRR, no murmur Abdomen: non-distended, no tenderness to palpation, +BS laboratory and microbiology Laboratory Tests 01/30/25 16:30 01/30/25 05:05 Test 01/30/25 05:05 Range/Units Serum Glucose 152 H 74-106 mg/dL Problems(with codes): (1) Esophagogastric ulcer (2) GI bleed Prognosis Plan Continue pureed diet Protonix 40 mg IV q.12 hours Carafate suspension 1 g p.o. 4 times a day Await pathology results rule out esophageal malignancy If the pathology results are negative then continue symptomatic treatment with Protonix Carafate consider repeat endoscopy in 2 months for re-evaluation Patient will follow up with a embryology teacher specialist at [place] Dietary Evaluation Review Recommendations by RD: Dietary education by RD Comments: 1) Advance to low-fat diet as medically feasible 2) Refer to outpatient RD for weight management 3) Follow-up with GI 4) Promote optimal PO intake 5) Continue plan of care Expected Outcomes/Goals: 1) appetite and labs to improve 2) diet to advance 3) f/u in 3 days Plan discussed with: Patient, Daughter, Other (Dr Hicks) CC Plasma Assessment Blood Product Administration S: [id number] SABINE MCCORD MD Jan 30, 2025 21:55
== END 2025-01-30 20:56 | disposition short-term general hospital (02) | DRG 380 ==
LOC: ER 14:47 → EDBD 14:47 → OVERFLOW 21:15 → TELE-CENTR 01-26 03:04
PROVIDERS: ADMIT Internal Medicine; ATTEND Internal Medicine
PROC: 30233N1 Transfusion of Nonautologous Red Blood Cells into Peripheral Vein, Percutaneous Approach (ICD-10-PCS; 2025-01-25)
PROC: 0D9670Z Drainage of Stomach with Drainage Device, Via Natural or Artificial Opening (ICD-10-PCS; 2025-01-25)
PROC: 0DB68ZX Excision of Stomach, Via Natural or Artificial Opening Endoscopic, Diagnostic (ICD-10-PCS; 2025-01-28)
PROC: 0DB48ZX Excision of Esophagogastric Junction, Via Natural or Artificial Opening Endoscopic, Diagnostic (ICD-10-PCS; 2025-01-28)
PROC: 0DB98ZX Excision of Duodenum, Via Natural or Artificial Opening Endoscopic, Diagnostic (ICD-10-PCS; principal; 2025-01-28 11:01)
DX: K22.11 Ulcer of esophagus with bleeding (principal); I21.4 Non-ST elevation (NSTEMI) myocardial infarction; D68.9 Coagulation defect, unspecified; I69.351 Hemiplegia and hemiparesis following cerebral infarction affecting right dominant side; I50.22 Chronic systolic (congestive) heart failure; K25.4 Chronic or unspecified gastric ulcer with hemorrhage; K29.71 Gastritis, unspecified, with bleeding; E78.5 Hyperlipidemia, unspecified; D50.0 Iron deficiency anemia secondary to blood loss (chronic); K21.9 Gastro-esophageal reflux disease without esophagitis; E66.9 Obesity, unspecified; I11.0 Hypertensive heart disease with heart failure; I25.10 Atherosclerotic heart disease of native coronary artery without angina pectoris; K44.9 Diaphragmatic hernia without obstruction or gangrene; K31.9 Disease of stomach and duodenum, unspecified; Z66 Do not resuscitate; Z87.11 Personal history of peptic ulcer disease; I25.2 Old myocardial infarction; Z79.899 Other long term (current) drug therapy; Z68.32 Body mass index [BMI] 32.0-32.9, adult
CPT/HCPCS: 36415; 36430; 71045; 74176; 80048; 80053; 80069; 81001; 82962; 83036; 83605; 83735; 83880; 84100; 84478; 84484; 85014; 85018; 85025; 85610; 85730; 86850; 86900; 86901; 86920; 93005; 93306; 96365; 96375; 99291; 99292; G0378; J1100; J1815; J2250; J2405; J2470; J2704; J3430; J3480; J3490